=== PATIENT | female | born 1995 | race Two or more races ===

== ENCOUNTER 2021-11-30 12:02 | Inpatient (IN) | payer MEDICAID, OTHER ==
[~2021-11-30] VITALS: Ht 152.4 cm; Wt 97.4 kg
[2021-11-30 13:35] LABS: Basophils # (auto) 0 10 ^3/uL (0-0.2); Basophils % (auto) 0.4 % (0.0-2.0); Eosinophils # (auto) 0.1 10 ^3/uL (0-0.8); Eosinophils % (auto) 1.1 % (0.0-7.0); Hematocrit 34.1 % (36.0-46.0); Hemoglobin 11.6 g/dL (12.2-16.2); Lymphocytes # (auto) 1.8 10 ^3/uL (0.4-5.4); Lymphocytes % (auto) 22.5 % (10.0-50.0); Mean Corpuscular Hemoglobin 29.8 pg (28.0-32.0); Mean Corpuscular Hgb Conc. 33.9 g/dL (32.0-36.0); Mean Corpuscular Volume 87.8 fL (80.0-100.0); Monocytes # (auto) 0.5 10 ^3/uL (0-1.3); Monocytes % (auto) 6.9 % (0.0-12.0); Neutrophils # (auto) 5.5 10 ^3/uL (1.6-8.6); Neutrophils % (auto) 69.1 % (37.0-80.0); Red Blood Cells 3.88 10^6/uL (4.0-5.20); White Blood Cell 7.9 10^3/uL (4.4-10.8)
[2021-11-30 13:50] LABS: Albumin 3.7 g/dL (3.4-5.0); Calcium 8.6 mg/dL (8.5-10.1); Potassium 3.7 mmol/L (3.5-5.1)
[2021-11-30 13:54] LABS: BUN/Creatinine Ratio 14.3; Bilirubin, Total 0.8 mg/dL (0.2-1.0); Total Protein 6.9 g/dL (6.4-8.2)
[2021-11-30 15:15] LABS: Urine Bacteria NONE SEEN /hpf (None Seen); Urine Blood 3+ /uL (Negative); Urine Mucus FEW (None Seen); Urine Specific Gravity 1.023 (1.001-1.035); Urine WBC 153 /hpf (0 - 5)
[2021-11-30] MEDS ORDERED: SODIUM CHLORIDE 0.9% 500 ML IVB ONE (19:00)
[2021-11-30] MEDS ORDERED: SODIUM CHLORIDE 0.9% 1,000 ML IV ONE (19:00)
[2021-11-30 19:57] LABS: Magnesium 1.7 mg/dL (1.6-2.6)
[2021-11-30] MEDS ORDERED: fentaNYL CITRATE 5 ML ONE (20:02)
[2021-11-30] MEDS ORDERED: MIDAZOLAM HCL 2MG/2ML 2ml VIAL (1mg/ml) ONE (20:02)
[2021-11-30] MEDS ORDERED: ROCURONIUM 10MG/ML 10ML VIAL IV ONE (20:02)
[2021-11-30] MEDS ORDERED: ceFAZolin 1GM/50ML 50 ML IV ONE ×3 (20:06→20:30)
[2021-11-30] MEDS ORDERED: SUCCINYLCHOLINE CHLORIDE 20 MG/ML 10ML VIAL IV ONE (20:07)
[2021-11-30] MEDS ORDERED: ONDANSETRON HCL 4 MG/2 ML VIAL ONE (20:11)
[2021-11-30] MEDS ORDERED: PROPOFOL 10 MG/ML 20 ML IV ONE (20:11)
[2021-11-30] MEDS ORDERED: LIDOCAINE 2% (LOCAL ANESTH.) PF 5ml SDV ONE (20:11)
[2021-11-30 20:12] LABS: INR 0.96 (0.9-1.15); Partial Thromboplastin Time 24.8 sec (24.6-33.4)
[2021-11-30] MEDS ORDERED: ACETAMINOPHEN IV 100 ML IV ONE (20:30)
[2021-11-30] MEDS ORDERED: MORPHINE SULFATE 4 MG/ML SYR/VIAL IV PRN (20:30)
[2021-11-30] MEDS ORDERED: NITROGLYCERIN 0.4 MG SL TAB SL PRN ×2 (20:30)
[2021-11-30] MEDS ORDERED: ONDANSETRON HCL 4 MG/2 ML VIAL IV PRN ×2 (20:30→20:45)
[2021-11-30] MEDS ORDERED: MORPHINE SULFATE INJ 2 MG/ml SYRG IV PRN ×2 (20:30)
[2021-11-30] MEDS ORDERED: HYDROmorphone HCL 2 MG/ML VL/or syr IV PRN (20:45)
[2021-11-30] MEDS ORDERED: GLYCOPYRROLATE 0.2 MG/ML 1ML VIAL ONE (21:12)
[2021-11-30] MEDS ORDERED: NEOSTIGMINE 1 MG/ML INJ (10mg/10ML VIAL) ONE (21:12)
[2021-11-30] MEDS: HYDROmorphone HCL 2 MG/ML VL/or syr IV PRN ×2 (21:25→21:45)
[2021-11-30] MEDS ORDERED: MEPERIDINE HCL (25 MG/ML) 1ML VIAL IV ONE (21:30)
[2021-11-30] MEDS ORDERED: MEPERIDINE HCL (25 MG/ML) 1ML VIAL ONE (21:30)
[2021-12-01 00:29] VITALS: BP 98/65
[2021-12-01 05:00] VITALS: BP 99/61
[2021-12-01 05:30] LABS: Basophils # (auto) 0 10 ^3/uL (0-0.2); Basophils % (auto) 0.3 % (0.0-2.0); Eosinophils # (auto) 0 10 ^3/uL (0-0.8); Eosinophils % (auto) 0.4 % (0.0-7.0); Hematocrit 27.2 % (36.0-46.0); Hemoglobin 9.5 g/dL (12.2-16.2); Lymphocytes # (auto) 1.3 10 ^3/uL (0.4-5.4); Lymphocytes % (auto) 16.7 % (10.0-50.0); Mean Corpuscular Hemoglobin 30.9 pg (28.0-32.0); Mean Corpuscular Hgb Conc. 34.8 g/dL (32.0-36.0); Mean Corpuscular Volume 88.8 fL (80.0-100.0); Monocytes # (auto) 0.5 10 ^3/uL (0-1.3); Monocytes % (auto) 6.2 % (0.0-12.0); Neutrophils # (auto) 5.8 10 ^3/uL (1.6-8.6); Neutrophils % (auto) 76.4 % (37.0-80.0); Red Blood Cells 3.07 10^6/uL (4.0-5.20); Red Cell Distribution Width 13.1 % (11.8-14.3); White Blood Cell 7.6 10^3/uL (4.4-10.8)
[2021-12-01] MEDS ORDERED: IBUP800T27 PO (07:17)
[2021-12-01] MEDS ORDERED: CEPH500T PO (07:17)
[2021-12-01] MEDS ORDERED: ONDA-144 PO (07:17)
[2021-12-01] MEDS ORDERED: HYDR-4902 PO (07:17)
[2021-12-01] MEDS: SODIUM CHLORIDE 0.9% 1,000 ML IV SCH ×2 (07:36→12:30)
[2021-12-01 09:00] VITALS: BP 97/63
== END 2021-12-01 15:24 | disposition home or self-care (01) | DRG 547 ==
LOC: ER 12:02 → SUR 20:10 → EAST 21:22
PROVIDERS: ADMIT Obstetrics & Gynecology; ATTEND Obstetrics & Gynecology
PROC: 10T24ZZ Resection of Products of Conception, Ectopic, Percutaneous Endoscopic Approach (ICD-10-PCS; principal; 2021-11-30 19:57)
DX: O00.101 Right tubal pregnancy without intrauterine pregnancy (principal); K66.1 Hemoperitoneum; O08.89 Other complications following an ectopic and molar pregnancy; O08.83 Urinary tract infection following an ectopic and molar pregnancy; G40.909 Epilepsy, unspecified, not intractable, without status epilepticus; Z90.49 Acquired absence of other specified parts of digestive tract; Z20.822 Contact with and (suspected) exposure to COVID-19
CPT/HCPCS: 36415; 76801; 76817; 80053; 81001; 81025; 83690; 83735; 84702; 85025; 85610; 85730; 86850; 86900; 86901; 96360; G0378; J0330; J0690; J2001; J2250; J2405; J2704

== ENCOUNTER 2022-01-15 23:32 | Emergency (ER) | payer MEDICAID ==
[~2022-01-15] VITALS: Ht 162.6 cm; Wt 91.0 kg
[~2022-01-15 23:32] MED LIST: CEPH500T PO; HYDR-4902 PO; IBUP800T27 PO; ONDA-144 PO
[2022-01-16] MEDS ORDERED: PENICILLIN G BENZ 1200000 UNITS/2 ML SYRG IM ONE (02:15)
[2022-01-16] MEDS ORDERED: IBUP600T27 PO (02:37)
[2022-01-16 02:58] VITALS: BP 123/82
== END 2022-01-16 03:00 | disposition home or self-care (01) ==
LOC: ER 23:32
DX: J02.0 Streptococcal pharyngitis (principal); Z90.49 Acquired absence of other specified parts of digestive tract; Z79.1 Long term (current) use of non-steroidal anti-inflammatories (NSAID); Z79.899 Other long term (current) drug therapy; Z88.8 Allergy status to other drugs, medicaments and biological substances
CPT/HCPCS: 87070; 87804; 87880; 96372; 99283; J0561

== ENCOUNTER 2022-11-29 20:10 | Emergency (ER) | payer MEDICAID ==
[~2022-11-29] VITALS: Ht 162.6 cm; Wt 84.0 kg
[~2022-11-29 20:10] MED LIST changes: +IBUP-1454 PO; +IBUP-1456 PO; -IBUP800T27 PO
[2022-11-29] MEDS ORDERED: ONDANSETRON ODT 4 MG TAB PO ONE (20:45)
[2022-11-29] MEDS ORDERED: HYDROcodone-ACET 10/325MG TAB PO ONE (20:45)
[2022-11-29 21:10] VITALS: BP 118/66; PULSE 71; RESP 18; TEMP 97.8; O2SAT 97
[2022-11-29 21:23] LABS: Lipase 48 U/L (12-53)
[2022-11-29 21:28] LABS: Urine Bacteria NONE SEEN /hpf (None Seen); Urine Blood 1+ /uL (Negative); Urine Clarity Clear (Clear); Urine Color Yellow (Yellow); Urine Protein, UAD TRACE (Negative); Urine WBC 1 /hpf (0 - 5)
[2022-11-29 21:32] LABS: Basophils # (auto) 0 10 ^3/uL (0-0.2); Basophils % (auto) 0.3 % (0.0-2.0); Eosinophils # (auto) 0.2 10 ^3/uL (0-0.8); Eosinophils % (auto) 2.8 % (0.0-7.0); Hemoglobin 14.3 g/dL (12.2-16.2); Lymphocytes # (auto) 2.6 10 ^3/uL (0.4-5.4); Lymphocytes % (auto) 36.3 % (10.0-50.0); Mean Corpuscular Hemoglobin 30.6 pg (28.0-32.0); Mean Corpuscular Hgb Conc. 34.1 g/dL (32.0-36.0); Mean Corpuscular Volume 89.9 fL (80.0-100.0); Monocytes # (auto) 0.5 10 ^3/uL (0-1.3); Monocytes % (auto) 6.6 % (0.0-12.0); Neutrophils # (auto) 3.9 10 ^3/uL (1.6-8.6); Nucleated Red Blood Cells % 0.1 %; Red Blood Cells 4.67 10^6/uL (4.0-5.20); Red Cell Distribution Width 13.1 % (11.8-14.3); White Blood Cell 7.2 10^3/uL (4.4-10.8)
[2022-11-29 21:41] LABS: CRP High Sensitivity 0.27 mg/dL (<1.0)
[2022-11-29 21:49] LABS: Alanine Aminotransferase 62 U/L (7-40); Albumin 4.4 g/dL (3.2-4.8); Alkaline Phosphatase 71 U/L (46-116); Anion Gap 7 (5-15); Aspartate Aminotransferase 37 U/L (13-40); BUN/Creatinine Ratio 15.6 (10.0-20.0); Bilirubin, Total 0.5 mg/dL (0.2-1.0); Blood Urea Nitrogen 12 mg/dL (9-23); Calcium 9.1 mg/dL (8.5-10.1); Carbon Dioxide 27 mmol/L (20-30); Chloride 107 mmol/L (98-107); Glucose 109 mg/dL (74-106); Potassium 3.8 mmol/L (3.5-5.1); Sodium 141 mmol/L (136-145); Total Protein 6.9 g/dL (5.7-8.2)
[2022-11-30] MEDS ORDERED: KETOROLAC TROMETH 60MG/2ML VIAL IM ONE
[2022-11-30] MEDS ORDERED: TRAM50TA2 PO (00:05)
[2022-11-30] MEDS ORDERED: ZOFR4T PO (00:05)
== END 2022-11-30 00:52 | disposition home or self-care (01) ==
LOC: ER 20:10
DX: K76.0 Fatty (change of) liver, not elsewhere classified (principal); R10.2 Pelvic and perineal pain; N20.0 Calculus of kidney; Z90.49 Acquired absence of other specified parts of digestive tract; Z98.890 Other specified postprocedural states; Z88.8 Allergy status to other drugs, medicaments and biological substances; Z79.1 Long term (current) use of non-steroidal anti-inflammatories (NSAID); Z79.899 Other long term (current) drug therapy
CPT/HCPCS: 36415; 74176; 80053; 81001; 81025; 83690; 84702; 85025; 86141; 99284; Q0162

== ENCOUNTER → 2024-01-03 | Outpatient (CLI) | payer MEDICAID ==
[~2024-01-03] MED LIST changes: +TRAM50TA2 PO; +ZOFR4T PO
[2024-01-03 12:43] LABS: Basophils # (auto) 0 10 ^3/uL (0-0.2); Basophils % (auto) 0.6 % (0.0-2.0); Eosinophils # (auto) 0.1 10 ^3/uL (0-0.8); Eosinophils % (auto) 2.2 % (0.0-7.0); Hematocrit 40.9 % (36.0-46.0); Hemoglobin 14.1 g/dL (12.2-16.2); Lymphocytes # (auto) 2.1 10 ^3/uL (0.4-5.4); Lymphocytes % (auto) 32.7 % (10.0-50.0); Mean Corpuscular Hgb Conc. 34.4 g/dL (32.0-36.0); Monocytes # (auto) 0.4 10 ^3/uL (0-1.3); Monocytes % (auto) 6.1 % (0.0-12.0); Neutrophils # (auto) 3.8 10 ^3/uL (1.6-8.6); Neutrophils % (auto) 58.4 % (37.0-80.0); Nucleated Red Blood Cells % 0.1 %; Platelet Count (auto) 335 10^3/uL (140-450); Red Blood Cells 4.54 10^6/uL (4.0-5.20); Red Cell Distribution Width 12.8 % (11.8-14.3); White Blood Cell 6.5 10^3/uL (4.4-10.8)
[2024-01-03 13:00] LABS: Urine Bacteria FEW /hpf (None Seen); Urine Blood Negative /uL (Negative); Urine Clarity Clear (Clear); Urine Color Yellow (Yellow); Urine Mucus FEW (None Seen); Urine Protein, UAD TRACE (Negative); Urine Specific Gravity 1.023 (1.001-1.035); Urine Urobilinogen 2 mg/dL (Negative); Urine WBC 3 /hpf (0 - 5); Urine pH 6.5 (5.0-9.0)
[2024-01-03 13:35] LABS: Amphetamine Screen, Urine Neg (NEGATIVE)
[2024-01-03 13:36] LABS: Barbiturate Scree,Urine Neg (NEGATIVE); Benzodiazephine Screen, Urine Neg (NEGATIVE); Cannabinoid Screen, Urine Neg (NEGATIVE); Cocaine Screen, Urine Neg (NEGATIVE); Opiate Scree,Urine Neg (NEGATIVE); Phencyclidine Screen, Urine Neg (NEGATIVE)
[2024-01-03 13:37] LABS: Alanine Aminotransferase 36 U/L (7-40); Albumin 4.5 g/dL (3.2-4.8); Alkaline Phosphatase 53 U/L (46-116); Anion Gap 6 (5-15); Aspartate Aminotransferase 22 U/L (13-40); Calcium 9.7 mg/dL (8.7-10.4); Carbon Dioxide 28 mmol/L (20-31); Chloride 105 mmol/L (98-107); Glucose 85 mg/dL (74-106); LDL Cholesterol 76 mg/dL (< 100); Potassium 3.4 mmol/L (3.5-5.1); Sodium 139 mmol/L (136-145); Triglycerides 135 mg/dL (< 150)
[2024-01-03 13:38] LABS: Bilirubin, Total 0.6 mg/dL (0.2-1.0); Cholesterol 131 mg/dL (< 200); HDL Cholesterol 38 mg/dL (40-59); Total Protein 7.4 g/dL (5.7-8.2)
[2024-01-03 13:39] LABS: Thyroid Stimulating Hormone 0.38 uIU/mL (0.55-4.78)
[2024-01-03 13:41] LABS: BUN/Creatinine Ratio 8.5 (10.0-20.0); Blood Urea Nitrogen < 5 mg/dL (9-23)
[2024-01-03 13:57] LABS: Beta HCG, Quantitative 25911.9 mIU/mL (1.5-4.2)
[2024-01-04 07:06] LABS: RPR Non Reactive (Non Reactive)
[2024-01-04 10:06] LABS: Varicella Zoster IgG Antibody Reactive (Non Reactive)
[2024-01-04 21:06] LABS: Chlamydia Trachomatis, NAA Negative (Negative); Neisseria gonorrhoeae, NAA Negative (Negative)
== END | disposition home or self-care (01) ==
LOC: LAB 11:47
DX: Z11.3 Encounter for screening for infections with a predominantly sexual mode of transmission (principal); N39.0 Urinary tract infection, site not specified
CPT/HCPCS: 36415; 80053; 80061; 80307; 81001; 83036; 84439; 84443; 84702; 85025; 86592; 86703; 86762; 86787; 86850; 86900; 86901; 87086; 87340; 87902

== ENCOUNTER 2024-03-06 22:06 | Emergency (ER) | payer MEDICAID ==
[~2024-03-06] VITALS: Ht 162.6 cm; Wt 85.4 kg
[2024-03-06 22:53] LABS: Urine Bacteria None Seen /hpf (None Seen)
[2024-03-06 23:10] LABS: Urine Blood Negative /uL (Negative); Urine Clarity Clear (Clear); Urine Color Colorless (Yellow); Urine Protein, UAD Negative (Negative); Urine Specific Gravity 1.004 (1.001-1.035); Urine Squamous Epithelial Cell FEW /hpf (<5); Urine Urobilinogen Normal (Negative); Urine WBC 1 /hpf (0 - 5); Urine pH 6.5 (5.0-9.0)
[2024-03-06 23:45] LABS: Basophils # (auto) 0 10 ^3/uL (0-0.2); Basophils % (auto) 0.4 % (0.0-2.0); Eosinophils # (auto) 0.2 10 ^3/uL (0-0.8); Eosinophils % (auto) 1.9 % (0.0-7.0); Hematocrit 40.2 % (36.0-46.0); Hemoglobin 13.5 g/dL (12.2-16.2); Lymphocytes # (auto) 2.3 10 ^3/uL (0.4-5.4); Lymphocytes % (auto) 26.2 % (10.0-50.0); Mean Corpuscular Hemoglobin 30.4 pg (28.0-32.0); Mean Corpuscular Hgb Conc. 33.6 g/dL (32.0-36.0); Mean Corpuscular Volume 90.5 fL (80.0-100.0); Monocytes # (auto) 0.5 10 ^3/uL (0-1.3); Neutrophils # (auto) 5.6 10 ^3/uL (1.6-8.6); Neutrophils % (auto) 65.5 % (37.0-80.0); Platelet Count (auto) 371 10^3/uL (140-450); Red Blood Cells 4.44 10^6/uL (4.0-5.20); White Blood Cell 8.6 10^3/uL (4.4-10.8)
[2024-03-06 23:54] LABS: Anion Gap 6 (5-15); Calcium 9.7 mg/dL (8.7-10.4); Carbon Dioxide 27 mmol/L (20-31); Chloride 106 mmol/L (98-107); Glucose 105 mg/dL (74-106); Potassium 3.5 mmol/L (3.5-5.1); Sodium 139 mmol/L (136-145)
[2024-03-06 23:55] LABS: Albumin 4.3 g/dL (3.2-4.8); Total Protein 6.8 g/dL (5.7-8.2)
[2024-03-07] LABS: Alanine Aminotransferase < 9 U/L (7-40); Alkaline Phosphatase 45 U/L (46-116); Aspartate Aminotransferase 9 U/L (13-40); BUN/Creatinine Ratio 9.6 (10.0-20.0); Bilirubin, Total 0.2 mg/dL (0.2-1.0); Blood Urea Nitrogen < 5 mg/dL (9-23)
--- NOTE | 2024-03-07 00:12 | ED.PDOC ---
History of Present Illness HPI Comments 28 y/o F, with a Hx of ectopic pregnancies and spontaneous abortions, presents with c/o abnormal vaginal bleeding, today. Patient reports unprovoked onset of spotting, earlier, today, after wiping, while using her bathroom's toilet. Patient endorses on being 15x weeks with her 12th ( AB10). She comments on having a "hematoma" with her previous and reports no additional relevant Hx, such as sexual activity or injuries. She denies having any abdominal pain, nausea, vomiting, urinary symptoms, or other associated symptoms or modifiers at this time. Chief Complaint: Vaginal Bleed Time Seen by MD: 23:30 Primary Care Provider: HARLAN Reviewed Notes: Nurses Notes, Medications, Allergies Allergies: Coded Allergies: Sumatriptan (Verified Allergy, Unknown, 11/30/21) Home Meds Active Scripts Ondansetron Odt 4MG Tab (ZOFRAN PO) 4 Mg Tb, 4 MG PO Q6HP PRN, #15 TAB ODT TAB-DISSOLVE IN MOUTH, THEN SWALLOW Prov:ANA CARSNO PAC 11/30/22 Tramadol Hcl (Tramadol Hcl) 50 Mg Tab, 50 MG PO Q6HP PRN, #15 TAB Prov:ANA CARSON PAC 11/30/22 Ibuprofen (Ibuprofen) 600 Mg Tab, 1 TAB PO TID for 5 Days, #15 TAB Prov:ANA CARSON PAC 01/16/22 Ondansetron (Zofran) 4 Mg Tab, 4 MG PO Q4HPRN PRN, #30 TAB Prov:CANDY WALTON DO 12/01/21 Ibuprofen (Ibuprofen) 800 Mg Tab, 800 MG PO TID PRN for 15 Days, #40 TAB Prov:CANDY WALTON DO 12/01/21 Hydrocodone-Acetaminophen (Hydrocodone Bitartrate/AC 5-325 mg) 1 Tab Tab, 1 TAB PO Q6HP PRN for 5 Days, #20 TAB Prov:CANDY WALTON DO 12/01/21 Cephalexin Monohydrate (Cephalexin) 500 Mg Tab, 1 TAB PO QID, #40 TAB Prov:CANDY WALTON DO 12/01/21 Information Source: Patient Mode of Arrival: Ambulatory Severity: Moderate Timing: Hours Duration: Since onset Prehospital treatment: None Past Medical History PAST MEDICAL HISTORY: Seizures Past Medical History (Other): obesity Surgical History: Cholecystectomy 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 , 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) 12 Para 2 AB 10 Family History Family History: Unknown Social History Smoker: Non-Smoker Alcohol: Denies ETOH Use Drugs: Denies Drug Use Lives In: Home Genitourinary: reports: abnormal vagina bleeding All Other Systems: Reviewed and Negative (negative unless otherwise stated above or in HPI) Physical Exam General Appearance: Mild Distress, Obese HEENT: Normal ENT Inspection, Pharynx Normal, TMs Normal Neck: Full Range of Motion, Non-Tender, Normal, Normal Inspection Respiratory: Chest Non-Tender, Lungs Clear, No Accessory Muscle Use, No Respiratory Distress, Normal Breath Sounds Cardiovascular: No Edema, No JVD, No Murmur, No Gallop, Normal Peripheral Pulses, Regular Rate/Rhythm Breast Exam: Deferred Gastrointestinal: No Organomegaly, Non Tender, No Pulsatile Mass, Normal Bowel Sounds, Soft, Other (Gravid uterus) Genitalia: Deferred Pelvic: Deferred Rectal: Deferred Extremities: No calf tenderness, Normal capillary refill, Normal inspection, Normal range of motion, Non-tender, No pedal edema Musculoskeletal : Apperance: Normal Neurologic: Alert, special education educational assistant II-XII nml as Tested, No Motor Deficits, Normal Affect, Normal Mood, No Sensory Deficits Cerebellar Function: Normal Reflexes: Normal Skin: Dry, Normal Color, Warm Lymphatic: No Adenopathy Was a procedure done? Was a procedure done?: No Differential Dx Considerations may include: threatened , threatened , menorrhagia, menorrhea, dysmenorrhea X-Ray, Labs, Meds, VS Vital Signs Date Time Temp Pulse Resp B/P (MAP) Pulse Ox O2 Delivery O2 Flow Rate FiO2 03/06/24 22:38 98.1 87 16 113/73 (86) 97 Lab Test 03/06/24 23:00 03/06/24 22:40 Range/Units White Blood Count 8.6 4.4-10.8 10^3/uL Red Blood Count 4.44 4.0-5.20 10^6/uL Hemoglobin 13.5 12.2-16.2 g/dL Hematocrit 40.2 36.0-46.0 % Mean Corpuscular Volume 90.5 80.0-100.0 fL Mean Corpuscular Hemoglobin 30.4 28.0-32.0 pg Mean Corpuscular Hemoglobin Concent 33.6 32.0-36.0 g/dL Red Cell Distribution Width 13.0 11.8-14.3 % Platelet Count 371 140-450 10^3/uL Mean Platelet Volume 7.2 6.9-10.8 fL Neutrophils (%) (Auto) 65.5 37.0-80.0 % Lymphocytes (%) (Auto) 26.2 10.0-50.0 % Monocytes (%) (Auto) 6.0 0.0-12.0 % Eosinophils (%) (Auto) 1.9 0.0-7.0 % Basophils (%) (Auto) 0.4 0.0-2.0 % Neutrophils # (Auto) 5.6 1.6-8.6 10 ^3/uL Lymphocytes # (Auto) 2.3 0.4-5.4 10 ^3/uL Monocytes # (Auto) 0.5 0-1.3 10 ^3/uL Eosinophils # (Auto) 0.2 0-0.8 10 ^3/uL Basophils # (Auto) 0 0-0.2 10 ^3/uL Nucleated Red Blood Cells 0.0 % Sodium Level 139 136-145 mmol/L Potassium Level 3.5 3.5-5.1 mmol/L Chloride Level 106 98-107 mmol/L Carbon Dioxide Level 27 20-31 mmol/L Anion Gap 6 5-15 Blood Urea Nitrogen < 5 L 9-23 mg/dL Creatinine 0.52 L 0.550-1.02 mg/dL Glomerular Filtration Rate Calc 128 >90 mL/min BUN/Creatinine Ratio 9.6 L 10.0-20.0 Serum Glucose 105 74-106 mg/dL Calcium Level 9.7 8.7-10.4 mg/dL Total Bilirubin 0.2 0.2-1.0 mg/dL Aspartate Amino Transferase (AST) 9 L 13-40 U/L Alanine Aminotransferase (ALT) < 9 7-40 U/L Alkaline Phosphatase 45 L 46-116 U/L Total Protein 6.8 5.7-8.2 g/dL Albumin 4.3 3.2-4.8 g/dL Beta HCG, Quantitative 42673.8 H 1.5-4.2 mIU/mL Urine Color Colorless Yellow Urine Clarity Clear Clear Urine pH 6.5 5.0-9.0 Urine Specific [place] 1.004 1.001-1.035 Urine Protein Negative Negative Urine Ketones Negative Negative Urine Blood Negative Negative /uL Urine Nitrite Negative Negative Urine Bilirubin Negative Negative Urine Urobilinogen Normal Negative mg/dL Urine Leukocyte Esterase Trace Negative /uL Urine RBC <1 0 - 4 /hpf Urine WBC 1 0 - 5 /hpf Urine Squamous Epithelial Cells Few <5 /hpf Urine Bacteria None seen None Seen /hpf Urine Glucose Normal Normal mg/dL [facility] [id number] [place] [address] Ph: [phone] DIAGNOSTIC IMAGING Diagnostic Imaging Report : [id number] Signed PATIENT: ADDIS ESTEVEZ ACCT: [id number] UNIT: [id number] : 1995 LOC: ER ROOM / BED: / AGE / SEX: 28 / F ADM STATUS: REG ER SERVICE 2332 ORDERING PHYSICIAN: KASSI LOPEZ MD PROCEDURE(s): OBUS - OB ULTRASOUND COMP GTR 14 WKS REASON: vaginal bleed ORDER NUMBER(s): [id number], ACCESSION NUMBER(s): [id number] LIMITED OB ULTRASOUND > 14 WKS: HISTORY: vaginal bleed TECHNIQUE: Multiple real-time grayscale images of the gravid uterus with duplex Doppler color flow and M-mode spectral analysis. FINDINGS: IUP single live fetus at 15 weeks 3 days based on composite averages of the BPD, head circumference, abdominal circumference and femur length presentation is transverse with head towards the right side. Placenta is anterior. Cervical length of 3.8 cm. The cervix appears closed. Estimated weight of 123 g. LAUREN is adequate. MVP 3.7 cm. heart rate of 159 beats per minute. Satellite Dish Installer notes good movement. IMPRESSION: IUP single live fetus at 15 weeks 3 days AUA corresponding to an SHANIQUA of August 25, 2024 ATED BY: TYLER MUNROE DO DICTATED DATE/TIME: 03/07/2443 SIGNED BY: TYLER MUNROE DO SIGNED DATE/TIME: 03/07/2443 CC: [place] [address]. Patient was placed on Macrobid for urinary tract infection. She can follow up with the OBGYN doctor in 1-2 days. Time of 1ST Reevaluation: 00:00 Reevaluation 1ST: Unchanged Patient Education/Counseling: Diagnosis, Treatment Family Education/Counseling: No Family Present Departure 1 Departure Time of Disposition: 01:14 Impression: Primary Impression: Intrauterine Additional Impression: UTI (urinary tract infection) Qualified Codes: N39.0 - Urinary tract infection, site not specified Disposition: HOME / SELF CARE / HOMELESS Condition: Stable Additional Instructions: Reassessed patient, vital signs stable. Denies any new symptoms. Patient is able to tolerate PO and ambulate/be mobile at their baseline without concern. Risks and benefits of all medications given or prescribed, if any, discussed. All lab work, imaging and diagnostic studies were reviewed by me. The patient was cou nseled extensively on my clinical impression, diagnosis, expected course of the disease, and plan, including their follow-up care. Will discharge patient. Patient instructed to follow up with Primary Care Physician/OBGYN within 24-48 hours. Strict return precautions given for further exacerbation of symptoms or for new symptoms. The patient was given the opportunity to ask questions and all questions were answered by myself and the nursing/tech staff. Patient is in agreement with the care plan. The patient verbally expressed understanding of the discharge instructions, including the reasons to return to the Emergency Department. e-Prescriptions Nitrofurantoin Monohydrate Mac (Macrobid) 100 Mg Cap 100 MG PO BID, #14 CAP Prov: KASSI LOPEZ MD 03/07/24 Discharged With: Self Critical Care Note Critical Care Time?: No Stability Stability form required: No Heart Score Heart Score: Heart Score Response (Comments) Value History N/A 0 EKG N/A 0 Age N/A 0 Risk Factors N/A 0 Troponin N/A 0 Total 0 I personally scribed for KASSI LOPEZ MD ([email or web address]) on 03/07/24 at 00:12. Electronically submitted by Johnson Scott ([email or web address]). KASSI LOPEZ MD Mar 07, 2024 00:12
--- NOTE | 2024-03-07 00:47 | DVH ---
LIMITED OB ULTRASOUND > 14 WKS: HISTORY: vaginal bleed TECHNIQUE: Multiple real-time grayscale images of the gravid uterus with duplex Doppler color flow an d M-mode spectral analysis. FINDINGS: IUP single live fetus at 15 weeks 3 days based on composite averages of the BPD, head circumference, abdominal circumference and femur length presentation is transverse with head towards the right side. Placenta is anterior. Cervical le ngth of 3.8 cm. The cervix appears closed. Estimated weight of 123 g. LAUREN is adequate. MVP 3.7 cm. heart rate of 159 beats per minute. Director Of Curriculum notes good movement. IMPRESSION: IUP single live fetus at 15 weeks 3 days AUA corresponding to an SHANIQUA of August 25, 2024
[2024-03-07] MEDS ORDERED: NITR-87 PO (01:25)
[2024-03-07 01:33] VITALS: BP 122/62; PULSE 77; RESP 18; O2SAT 100
== END 2024-03-07 01:34 | disposition home or self-care (01) ==
LOC: ER 22:06
DX: O41.1220 Chorioamnionitis, second trimester, not applicable or unspecified (principal); R10.2 Pelvic and perineal pain; N39.0 Urinary tract infection, site not specified; Z3A.15 15 weeks gestation of pregnancy
CPT/HCPCS: 36415; 76805; 80053; 81001; 84702; 85025

== ENCOUNTER → 2024-06-13 | Outpatient (CLI) | payer MEDICAID ==
[~2024-06-13] MED LIST changes: +NITR-87 PO
[2024-06-13 15:51] LABS: Creatinine, Urine 87.98 mg/dL (30.0-125.0)
== END | disposition home or self-care (01) ==
LOC: LAB 14:14
DX: Z34.80 Encounter for supervision of other normal pregnancy, unspecified trimester (principal); Z3A.00 Weeks of gestation of pregnancy not specified
CPT/HCPCS: 36415; 82043; 82570; 84550

== ENCOUNTER 2024-06-16 21:09 | Observation (INO) | payer MEDICAID ==
[~2024-06-16] VITALS: Ht 162.6 cm; Wt 88.9 kg
[2024-06-16 22:39] LABS: Urine Bacteria None Seen /hpf (None Seen)
[2024-06-16 22:45] LABS: Basophils # (auto) 0 10 ^3/uL (0-0.2); Basophils % (auto) 0.3 % (0.0-2.0); Eosinophils # (auto) 0.1 10 ^3/uL (0-0.8); Eosinophils % (auto) 1.6 % (0.0-7.0); Hemoglobin 12.2 g/dL (12.2-16.2); Lymphocytes # (auto) 1.8 10 ^3/uL (0.4-5.4); Lymphocytes % (auto) 22.5 % (10.0-50.0); Mean Corpuscular Hemoglobin 31.2 pg (28.0-32.0); Mean Corpuscular Hgb Conc. 34.9 g/dL (32.0-36.0); Mean Corpuscular Volume 89.4 fL (80.0-100.0); Monocytes # (auto) 0.5 10 ^3/uL (0-1.3); Monocytes % (auto) 6.7 % (0.0-12.0); Neutrophils # (auto) 5.4 10 ^3/uL (1.6-8.6); Neutrophils % (auto) 68.9 % (37.0-80.0); Platelet Count (auto) 328 10^3/uL (140-450); Red Blood Cells 3.92 10^6/uL (4.0-5.20); Red Cell Distribution Width 13.3 % (11.8-14.3); White Blood Cell 7.8 10^3/uL (4.4-10.8)
[2024-06-16 22:53] LABS: Urine Blood Negative /uL (Negative); Urine Clarity Clear (Clear); Urine Color Colorless (Yellow); Urine Protein, UAD Negative (Negative); Urine Specific Gravity 1.005 (1.001-1.035); Urine Squamous Epithelial Cell FEW /hpf (<5); Urine Urobilinogen Normal (Negative); Urine WBC < 1 /HPF (0-5)
[2024-06-16 22:59] LABS: Alanine Aminotransferase 10 U/L (7-40); Alkaline Phosphatase 60 U/L (46-116); Calcium 9.3 mg/dL (8.7-10.4)
[2024-06-16 23:00] LABS: Albumin 3.8 g/dL (3.2-4.8); Anion Gap 10 (5-15); Bilirubin, Total 0.3 mg/dL (0.2-1.0); Carbon Dioxide 23 mmol/L (20-31); Sodium 141 mmol/L (136-145); Total Protein 6.3 g/dL (5.7-8.2); Uric Acid 3.4 mg/dL (3.1-7.8)
[2024-06-16 23:03] LABS: Creatinine, Urine 19.16 mg/dL (30.0-125.0); Urine Protein/Creatinine Ratio 0.31
[2024-06-16 23:04] LABS: Protein, Urine < 6.0 mg/dL (1-14)
[2024-06-16 23:05] LABS: Aspartate Aminotransferase 13 U/L (13-40); BUN/Creatinine Ratio 12.2 (10.0-20.0); Blood Urea Nitrogen < 5 mg/dL (9-23); Chloride 108 mmol/L (98-107); Glucose 130 mg/dL (74-106); Potassium 3.3 mmol/L (3.5-5.1)
[2024-06-16 23:05] LABS: Amphetamine Screen, Urine Neg (NEGATIVE); Barbiturate Scree,Urine Neg (NEGATIVE); Benzodiazephine Screen, Urine Neg (NEGATIVE); Cannabinoid Screen, Urine Neg (NEGATIVE); Cocaine Screen, Urine Neg (NEGATIVE); Opiate Scree,Urine Neg (NEGATIVE); Phencyclidine Screen, Urine Neg (NEGATIVE)
[2024-06-16] MEDS: ACETAMINOPHEN 325 MG TAB PO ONE (23:45)
--- NOTE | 2024-06-17 08:01 | DVHDS2 ---
Physician Discharge Progress N Final Diagnosis: gilbertoalexander 29wks Operations or Procedures: Operations or Procedures nst,sono Condition on Discharge: Good Disposition: Home Discharge Instructions: Diet: Consistent carbohydrate Activity: Light activity Medications: na Follow Up Care: Specialist: fu in 1 day with [facility]ila alexander arnold with neuro Discharge Statement: "Patient was advised to return to the ER or call 911 if any headaches, dizziness, shortness of breath, chest pain, abdominal pain, bleeding, fevers, or worsening of medical condition. Patient was counseled about treatment plan, medications, possible side effects, patientverbalized understanding. All questions were answered to the best of my ability. This discharge took greater then 30 minutes in planning, reviewing documentation, counseling the patient, and discussing with other team members." Visit Coding OBGYN Date of Service: Jun 16, 2024 Billing Provider: CANDY WALTON DO MAGNET VALVE ASSEMBLER Common Visit Codes: 86423-FSOFJWM INP/OBS CARE (HIGH) MAGNET VALVE ASSEMBLER Procedure Codes: 55985-58- NON-STRESS TEST CANDY WALTON DO Jun 17, 2024 08:01
== END 2024-06-17 01:03 | disposition home or self-care (01) ==
LOC: LDRP 21:09
PROVIDERS: ADMIT Obstetrics & Gynecology; ATTEND Obstetrics & Gynecology
DX: O99.353 Diseases of the nervous system complicating pregnancy, third trimester (principal); G40.909 Epilepsy, unspecified, not intractable, without status epilepticus; O26.893 Other specified pregnancy related conditions, third trimester; R51.9 Headache, unspecified; R10.12 Left upper quadrant pain; Z3A.29 29 weeks gestation of pregnancy; Z79.899 Other long term (current) drug therapy; Z98.890 Other specified postprocedural states
CPT/HCPCS: 36415; 59025; 80053; 80307; 81001; 82570; 82948; 82962; 84156; 84550; 85025; 94760; G0378

== ENCOUNTER 2024-07-10 07:22 | Observation (INO) | payer MEDICAID ==
[~2024-07-10] VITALS: Ht 162.6 cm; Wt 86.2 kg
[2024-07-10] MEDS: ACETAMINOPHEN 325 MG TAB PO PRN (10:01)
[2024-07-10] MEDS: InsuLIN REG 1unit/0.01ml Soln (100units/ml) SC ONE (10:02)
--- NOTE | 2024-07-10 10:11 | DVH ---
BIOPHYSICAL PROFILE HISTORY: GDMA1 Comparison Study: None TECHNIQUE: Multiple real-time grayscale sonographic images through the gravid uterus of the fetus wit h duplex doppler color flow and M-mode spectral analysis FINDINGS: BIOPHYSICAL PROFILE: breathing score: 2 movement score: 2 tone score: 2 Quantitative LAUREN score: 2 (LAUREN: 15.4 cm.) Total score: 8/8 The cervix is not seen. Single live fetus in cephalic presentation. heart rate 152 beats per minute. Anterior placenta without previa or abruption Biophysical profile score 8/8 corresponding to an SHANIQUA of 08/27/24 IMPRESSION: Biophysical profile score: 8/8
[2024-07-10] MEDS ORDERED: PREN-96 PO (10:27)
--- NOTE | 2024-07-11 05:56 | DVHDS2 ---
Discharge Summary Date of Admission July 10, 2024 at 09:20 Date of Discharge: July 10, 2024 Admitting Diagnosis GDM A1 33 weeks Labs/Diagnostic Data: Laboratory Results Test 07/10/24 10:39 POC Glucose 118 mg/dl (70-106) Brief Hx & Hospital Course: Reassuring heart tones in fluid Condition at Discharge: Good Final Diagnosis/Problems List Reassuring heart tones Discharge Disposition: Home Discharge Instruct/Medications Diet: Consistent carbohydrate Activity: Light activity Discharge Statement: "Patient was advised to return to the ER or call 911 if any headaches, diz ziness, shortness of breath, chest pain, abdominal pain, bleeding, fevers, or worsening of medical condition. Patient was counseled about treatment plan, medications, possible side effects, patientverbalized understanding. All questions were answered to the best of my ability. This discharge took greater then 30 minutes in planning, reviewing documentation, counseling the patient, and discussing with other team members." ASSESSMENT ASSESSMENT Assessment Visit Coding OBGYN Date of Service: July 10, 2024 Billing Provider: LIONEL TROTTER DO BULB FARMWORKER Common Visit Codes: 78035-GJI/OBS SAME DATE (LOW), 34800-LIG/OBS SAME DATE (MOD), 09586-MOC/OBS SAME DATE (HIGH) BULB FARMWORKER Procedure Codes: 29198-37- NON-STRESS TEST LIONEL TROTTER DO July 11, 2024 05:56
== END 2024-07-10 10:59 | disposition home or self-care (01) ==
LOC: UNDOADMOB 09:00 → LDRP 09:00 → UNDODISOB 10:59
PROVIDERS: ADMIT Obstetrics & Gynecology; ATTEND Obstetrics & Gynecology
DX: O24.419 Gestational diabetes mellitus in pregnancy, unspecified control (principal); Z98.890 Other specified postprocedural states; Z79.899 Other long term (current) drug therapy; Z3A.33 33 weeks gestation of pregnancy
CPT/HCPCS: 59025; 76819; 81002; 82948; 82962; 94760; 96372; G0378; J1815

== ENCOUNTER 2024-07-14 06:08 | Observation (INO) | payer MEDICAID ==
[~2024-07-14 06:08] MED LIST changes: +PREN-96 PO
--- NOTE | 2024-07-14 14:27 | DVH ---
BIOPHYSICAL PROFILE HISTORY: GDMA1 TECHNIQUE: Multiple transabdominal real-time grayscale sonographic images through the gravid uterus of the fetus with duplex Doppler color flow and M-mode spectral analysis FINDINGS: BIOPHYSICAL PROFILE: breathing score: 2 movement score: 2 tone score: 2 Quantitative LAUREN score: 2 (LAUREN: 15.3 Cm.) Total score: 8 The cervix not well visualized. Single live fetus in cephalic presentation. heart rate 148 beats per minute. Grade 3 anterior placenta without previa or abruption IMPRESSION: Biophysical profile score: 8/8
--- NOTE | 2024-07-14 15:08 | DVHDS2 ---
Physician Discharge Progress N Final Diagnosis: gdm 34 wks Operations or Procedures: Operations or Procedures nst reactive reviewed ,sono Condition on Discharge: Good Disposition: Home Discharge Instructions: Diet: Regular, Consistent carbohydrate Activity: No Restrictions, As Tolerated Medications: na Follow Up Care: Specialist: 1w Discharge Statement: "Patient was advised to return to the ER or call 911 if any headaches, dizziness, shortness of breath, chest pain, abdominal pain, bleeding, fevers, or worsening of medical condition. Patient was counseled about treatment plan, medications, possible side effects, patientverbalized understanding. All questions were answered to the best of my ability. This discharge took greater then 30 minutes in planning, reviewing documentation, counseling the patient, and discussing with other team members." Visit Coding OBGYN Date of Service: July 14, 2024 Billing Provider: CANDY WALTON DO RESPIRATORY SERVICES MANAGER Common Visit Codes: 13565-PIBFWSN OBS CARE (HIGH) RESPIRATORY SERVICES MANAGER Procedure Codes: 20424-60- NON-STRESS TEST CANDY WALTON DO July 14, 2024 15:08
== END 2024-07-14 15:06 | disposition home or self-care (01) ==
LOC: LDRP 13:20
PROVIDERS: ADMIT Obstetrics & Gynecology; ATTEND Obstetrics & Gynecology
DX: O24.419 Gestational diabetes mellitus in pregnancy, unspecified control (principal); Z3A.34 34 weeks gestation of pregnancy; Z79.899 Other long term (current) drug therapy; Z98.890 Other specified postprocedural states
CPT/HCPCS: 59025; 76819; 81002; 82948; 82962; 94760; G0378

== ENCOUNTER 2024-07-18 06:19 | Observation (INO) | payer MEDICAID ==
--- NOTE | 2024-07-28 11:27 | DVH ---
BIOPHYSICAL PROFILE HISTORY: GDMA1/ Cholestasis Comparison Study: US BIOPHYSICAL PROFILE on DOS: 07/14/24, US BIOPHYSICAL PROFILE on DOS: 07/10/24 TECHNIQUE: Multiple real-time grayscale sonographic images through the gravid uterus of the fetus wi th duplex Doppler color flow and M-mode spectral analysis FINDINGS: BIOPHYSICAL PROFILE: breathing score: 8 movement score: 8 tone score: 8 Quantitative LAUREN score: 8 (LAUREN: 13.3 Cm.) Total score: 8 The cervix is not visualized Single live fetus in cephalic presentation. heart rate 139 beats per minute. Grade 2, anterior placenta without previa or abruption IMPRESSION: Biophysical profile score: 8
[2024-07-28 11:34] LABS: Basophils # (auto) 0 10 ^3/uL (0-0.2); Basophils % (auto) 0.2 % (0.0-2.0); Eosinophils # (auto) 0.1 10 ^3/uL (0-0.8); Eosinophils % (auto) 1.1 % (0.0-7.0); Hematocrit 37.8 % (36.0-46.0); Lymphocytes # (auto) 1.3 10 ^3/uL (0.4-5.4); Lymphocytes % (auto) 15.6 % (10.0-50.0); Mean Corpuscular Hemoglobin 30.6 pg (28.0-32.0); Mean Corpuscular Hgb Conc. 34.4 g/dL (32.0-36.0); Mean Corpuscular Volume 89.1 fL (80.0-100.0); Monocytes # (auto) 0.4 10 ^3/uL (0-1.3); Monocytes % (auto) 5.1 % (0.0-12.0); Neutrophils # (auto) 6.4 10 ^3/uL (1.6-8.6); Nucleated Red Blood Cells % 0.1 %; Platelet Count (auto) 311 10^3/uL (140-450); Red Blood Cells 4.24 10^6/uL (4.0-5.20); Red Cell Distribution Width 13.6 % (11.8-14.3); White Blood Cell 8.2 10^3/uL (4.4-10.8)
[2024-07-28 11:50] LABS: Albumin 3.9 g/dL (3.2-4.8); Alkaline Phosphatase 113 U/L (46-116); Anion Gap 7 (5-15); Aspartate Aminotransferase 17 U/L (13-40); Bilirubin, Total 0.4 mg/dL (0.2-1.0); Calcium 9.4 mg/dL (8.7-10.4); Carbon Dioxide 23 mmol/L (20-31); Glucose 86 mg/dL (74-106); Potassium 3.9 mmol/L (3.5-5.1); Sodium 140 mmol/L (136-145); Total Protein 6.4 g/dL (5.7-8.2)
[2024-07-28 11:53] LABS: Alanine Aminotransferase < 9 U/L (7-40); BUN/Creatinine Ratio 11.1 (10.0-20.0); Blood Urea Nitrogen < 5 mg/dL (9-23); Chloride 110 mmol/L (98-107)
--- NOTE | 2024-07-28 17:00 | DVHDS2 ---
Physician Discharge Progress N Final Diagnosis: gdm,cholestasis 35wks Operations or Procedures: Operations or Procedures nst reactive reviewed Condition on Discharge: Good Disposition: Home Discharge Instructions: Diet: Consistent carbohydrate Activity: Light activity Medications: actigal Follow Up Care: Specialist: 3d Discharge Statement: "Patient was advised to return to the ER or call 911 if any headaches, dizziness, shortness of breath, chest pain, abdominal pain, bleeding, fevers, or worsening of medical condition. Patient was counseled about treatment plan, medications, possible side effects, patientverbalized understanding. All questions were answered to the best of my ability. This discharge took greater then 30 minutes in planning, reviewing documentation, counseling the patient, and discussing with other team members." Visit Coding OBGYN Date of Service: July 28, 2024 Billing Provider: CANDY WALTON DO PHOTO TECHNICIAN Common Visit Codes: 08682-MOGUFUW OBS CARE (HIGH) PHOTO TECHNICIAN Procedure Codes: 04558-81- NON-STRESS TEST CANDY WALTON DO July 28, 2024 17:00
== END 2024-07-28 12:51 | disposition home or self-care (01) ==
LOC: UNDOADMOB 07-28 10:15 → LDRP 07-28 10:15 → UNDODISOB 07-28 12:51
PROVIDERS: ADMIT Obstetrics & Gynecology; ATTEND Obstetrics & Gynecology
DX: O24.419 Gestational diabetes mellitus in pregnancy, unspecified control (principal); O26.643 Intrahepatic cholestasis of pregnancy, third trimester; K83.1 Obstruction of bile duct; Z3A.34 34 weeks gestation of pregnancy; Z79.899 Other long term (current) drug therapy
CPT/HCPCS: 36415; 59025; 76819; 80053; 81002; 82948; 82962; 83036; 85025; 86780; 94760; G0378

== ENCOUNTER 2024-08-01 07:19 | Observation (INO) | payer MEDICAID ==
--- NOTE | 2024-08-04 08:43 | DVH ---
BIOPHYSICAL PROFILE HISTORY: GDMA1/Mis TECHNIQUE: Multiple transabdominal real-time grayscale sonographic images through the gravid uterus o f the fetus with duplex doppler color flow and M-mode spectral analysis FINDINGS: BIOPHYSICAL PROFILE: breathing score: 2 movement score: 2 tone score: 2 Quantitative LAUREN score: 2 (LAUREN: 12.6 cm.) Total score: 8/8 Single live fetus in cephalic presentation. heart rate 147 beats per minute. Grade 2 anterior placenta without previa or abruption Biophysical profile score 8/8 corresponding to an SHANIQUA of 08/27/24 IMPRESSION: Biophysical profile score: 8/8
[2024-08-04] MEDS ORDERED: URSO300C2 PO (09:28)
--- NOTE | 2024-08-04 09:56 | DVHDS2 ---
Physician Discharge Progress N Final Diagnosis: cholestasis 36wks Operations or Procedures: Operations or Procedures nst reactive reviewed,sono Other Interventions Other Interventions pt has been noncompliant and has not picked up her meds actigal ,risks and complic of iufd d/w pt .pt urged to sampler pickup med and will induce tmw bc of noncompliancey Condition on Discharge: Good Disposition: Home Discharge Instructions: Diet: Consistent carbohydrate Activity: No Restrictions, As Tolerated Medications: actigal Follow Up Care: Specialist: 1d Discharge Statement: "Patient was advised to return to the ER or call 911 if any headaches, dizziness, shortness of breath, chest pain, abdominal pain, bleeding, fevers, or worsening of medical condition. Patient was counseled about treatment plan, medications, possible side effects, patientverbalized understanding. All questions were answered to the best of my ability. This discharge took greater then 30 minutes in planning, reviewing documentation, counseling the patient, and discussing with other team members." Visit Coding OBGYN Date of Service: Aug 04, 2024 Billing Provider: CANDY WALTON DO BEAD PICKER Common Visit Codes: 28615-PXYOYGA OBS CARE (HIGH) BEAD PICKER Procedure Codes: 45334-96- NON-STRESS TEST CANDY WALTON DO Aug 04, 2024 09:56
== END 2024-08-04 09:44 | disposition home or self-care (01) ==
LOC: LDRP 08-04 08:02 → UNDOADMOB 08-04 08:02 → LDRP 08-04 08:07 → UNDODISOB 08-04 09:44
PROVIDERS: ADMIT Obstetrics & Gynecology; ATTEND Obstetrics & Gynecology
DX: O26.643 Intrahepatic cholestasis of pregnancy, third trimester (principal); K83.1 Obstruction of bile duct; Z3A.36 36 weeks gestation of pregnancy; Z79.899 Other long term (current) drug therapy; Z98.890 Other specified postprocedural states
CPT/HCPCS: 59025; 76819; 81002; 82948; 82962; 94760; G0378

== ENCOUNTER 2024-08-05 19:53 | Inpatient (IN) | payer MEDICAID ==
[~2024-08-05] VITALS: Ht 162.6 cm; Wt 90.3 kg
[~2024-08-05 19:53] MED LIST changes: +URSO300C2 PO
[2024-08-05] MEDS ORDERED: NALBUPHINE HCL 10 MG/1ml INJECTION IV PRN (20:15)
[2024-08-05] MEDS ORDERED: LIDOCAINE 2%HCL (LOCAL ANESTH.) INJ 20ML MDV IJ PRN (20:15)
[2024-08-05 20:53] LABS: Basophils # (auto) 0 10 ^3/uL (0-0.2); Basophils % (auto) 0.3 % (0.0-2.0); Eosinophils # (auto) 0.1 10 ^3/uL (0-0.8); Eosinophils % (auto) 1.3 % (0.0-7.0); Hematocrit 38.8 % (36.0-46.0); Hemoglobin 13.5 g/dL (12.2-16.2); Lymphocytes # (auto) 1.9 10 ^3/uL (0.4-5.4); Lymphocytes % (auto) 21.5 % (10.0-50.0); Mean Corpuscular Hemoglobin 30.9 pg (28.0-32.0); Mean Corpuscular Hgb Conc. 34.8 g/dL (32.0-36.0); Mean Corpuscular Volume 88.9 fL (80.0-100.0); Monocytes # (auto) 0.6 10 ^3/uL (0-1.3); Monocytes % (auto) 6.3 % (0.0-12.0); Neutrophils # (auto) 6.3 10 ^3/uL (1.6-8.6); Neutrophils % (auto) 70.6 % (37.0-80.0); Nucleated Red Blood Cells % 0.1 %; Platelet Count (auto) 323 10^3/uL (140-450); Red Blood Cells 4.36 10^6/uL (4.0-5.20); Red Cell Distribution Width 13.6 % (11.8-14.3); White Blood Cell 8.9 10^3/uL (4.4-10.8)
[2024-08-05 20:56] LABS: Urine Bacteria None Seen /hpf (None Seen); Urine Blood Negative /uL (Negative); Urine Clarity Clear (Clear); Urine Color Colorless (Yellow); Urine Protein, UAD Negative (Negative); Urine Specific Gravity 1.003 (1.001-1.035); Urine Squamous Epithelial Cell FEW /hpf (<5); Urine Urobilinogen Normal (Negative); Urine pH 6.5 (5.0-9.0)
[2024-08-05 21:09] LABS: Alanine Aminotransferase 11 U/L (7-40); Albumin 4.2 g/dL (3.2-4.8); Anion Gap 12 (5-15); Aspartate Aminotransferase 21 U/L (13-40); BUN/Creatinine Ratio 9.6 (10.0-20.0); Calcium 9.9 mg/dL (8.7-10.4); Carbon Dioxide 23 mmol/L (20-31); Chloride 106 mmol/L (98-107); Glucose 103 mg/dL (74-106); Potassium 3.8 mmol/L (3.5-5.1); Sodium 141 mmol/L (136-145); Total Protein 6.9 g/dL (5.7-8.2)
[2024-08-05 21:10] LABS: Bilirubin, Total 0.5 mg/dL (0.2-1.0)
[2024-08-05 21:12] LABS: INR 0.91 (0.9-1.15); Partial Thromboplastin Time 24.6 SEC (24.5-34.5); Prothrombin Time 9.7 sec (9.3-11.8)
[2024-08-05 21:45] LABS: Alkaline Phosphatase 131 U/L (46-116); Blood Urea Nitrogen 5 mg/dL (9-23)
[2024-08-05 21:45] LABS: Amphetamine Screen, Urine Neg (NEGATIVE); Barbiturate Scree,Urine Neg (NEGATIVE); Benzodiazephine Screen, Urine Neg (NEGATIVE); Cocaine Screen, Urine Neg (NEGATIVE); Opiate Scree,Urine Neg (NEGATIVE); Phencyclidine Screen, Urine Neg (NEGATIVE)
[2024-08-05 21:46] LABS: Cannabinoid Screen, Urine Neg (NEGATIVE)
[2024-08-05 21:50] LABS: Urine WBC < 1 /HPF (0-5)
[2024-08-05] MEDS ORDERED: URSODIOL 300 MG CAP PO SCH (22:00)
--- NOTE | 2024-08-05 22:03 | DVHHP2 ---
OB CC & HPI Date Date of Admission: Aug 05, 2024 Patient Identification: : 14 Para: 2 EDC: Aug 27, 2024 EGA: 36w 6d Chief Complaints: Reason for admission: induction of labor Indication for induction: medical complication (Epilepsy), other (Cholestasis of , GDMA1) Other reason for admission: IOL for Chlestasis of Admission Nurse Assessment Rev: Yes History of Present Complaints 28yo female with EDC on 08/27/24 by 6week US presents to Place for IOL. complicated by Cholestasis and GDMA2. Pt with h/o epilepsy well controlled on Keppra. Has not had a seizure in more than ten years. Reports normal movement, mild irregular contraction, no LOF, no vaginal bleeding Past Medical History Cardiac: No pertinent Hx Pulmonary: No pertinent Hx Central Nervous System: Migraine, Seizure GI: Inflam bowel disease Hemotology/Oncology: No pertinent Hx Hepatobiliary: No pertinent Hx Psychiatric: No pertinent Hx Musculoskeletal: No pertinent Hx Rheumotologic: No pertinent Hx Infectious Disease: No peritnent Hx ENT: No pertinent Hx Renal/: No pertinent Hx Endocrine: Other (GDM) Dermatology: No pertinent Hx Past Surgical History: Cholecystectomy, Laparotomy, Tonsillectomy OB History OB History Care: Good Care Ultrasounds: Normal mid trimester US Obstetrical Complications: Gestational Diabetes, Other (Cholestasis of ) Medical Complications: Neurological Allergies: Coded Allergies: Sumatriptan (Verified Adverse Reaction, Mild, 08/05/24) Throat felt tight but no problem breathing Home Meds Active Scripts Nitrofurantoin Monohydrate Mac (Macrobid) 100 Mg Cap, 100 MG PO BID, #14 CAP Prov:KASSI LOPEZ MD 03/07/24 Ondansetron Odt 4MG Tab (ZOFRAN PO) 4 Mg Tb, 4 MG PO Q6HP PRN, #15 TAB ODT TAB-DISSOLVE IN MOUTH, THEN SWALLOW Prov:ANA CARSON PAC 11/30/22 Tramadol Hcl (Tramadol Hcl) 50 Mg Tab, 50 MG PO Q6HP PRN, #15 TAB Prov:ANA CARSON PAC 11/30/22 Ibuprofen (Ibuprofen) 600 Mg Tab, 1 TAB PO TID for 5 Days, #15 TAB Prov:ANA CARSON PAC 01/16/22 Ondansetron (Zofran) 4 Mg Tab, 4 MG PO Q4HPRN PRN, #30 TAB Prov:CANDY WALTON DO 12/01/21 Ibuprofen (Ibuprofen) 800 Mg Tab, 800 MG PO TID PRN for 15 Days, #40 TAB Prov:CANDY WALTNO DO 12/01/21 Hydrocodone-Acetaminophen (Hydrocodone Bitartrate/AC 5-325 mg) 1 Tab Tab, 1 TAB PO Q6HP PRN for 5 Days, #20 TAB Prov:CANDY WALTON DO 12/01/21 Cephalexin Monohydrate (Cephalexin) 500 Mg Tab, 1 TAB PO QID, #40 TAB Prov:CANDY WALTON DO 12/01/21 Reported Medications Ursodiol (Ursodiol) 300 Mg Cap, 300 MG PO, CAP 08/04/24 Vit W/ Ferrous Fumara ( One Daily) Daily Tab, 1 TAB PO DAILY, #90 TAB 3 Refills 07/10/24 Current Medications Current Medications Medications (Trade) Dose Ordered Sig/Juvenal Route PRN Reason Start Time Stop Time Status Last Admin Lactated Ringer's 1,000 ml @ 125 mls/hr Q8H IV 08/05/24 20:15 Nalbuphine HCl (Nubain) 10 mg Q4HP PRN IV MODERATE PAIN (4-6 PAIN SCALE) 08/05/24 20:15 Penicillin G Potassium [id number] units/Dextrose 50 ml @ 100 mls/hr Q4H IV 08/06/24 00:15 Monica She (Tucks) 1 pad PRN PRN TOP PERINEAL AREA DISCOMFORT 08/05/24 20:15 Sodium Lauryl Sulfate (Phisoderm) 240 ml PRN PRN TOP PERINEAL AREA DISCOMFORT 08/05/24 20:15 Benzocaine (Dermoplast) 1 applic PRN PRN TOP PERINEAL AREA DISCOMFORT 08/05/24 20:15 Misoprostol (Cytotec) 50 mcg Q4HPRN PRN PO CERVICAL RIPENING 08/05/24 20:15 Lidocaine HCl (Xylocaine) 40 ml ONCE PRN IJ PERINEAL AREA DISCOMFORT 08/05/24 20:15 Ursodiol (Actigall) 300 mg BID PO 08/05/24 22:00 Levetiracetam (Keppra Tablet) 600 mg BID PO 08/06/24 07:00 UNV Family & Social History Family/Social History Past Family/Social History: Diabetes Mellitus - Mother Crohn's disease - father Blood Type: O+ Rubella: not immune RPR/VDRL: Negative GBS Status: Unknown HBsAG: Negative Review of Systems Constitutional: No symptom reported Ears, Nose, & Throat: No symptom reported Eyes: No symptom reported Pulmonary/Respiratory: No symptom reported Cardiovascular: No symptom reported Gastrointestinal: No symptom reported Genitourinary: No symptom reported Musculoskeletal: No symptom reported Skin: No symptom reported Psychiatric: No symptom reported Endocrine: No symptom reported Hemotologic/Lymphatic: No symptom reported OB Admission Exam Physical Exam HEENT: TMs Normal, Fontanelles Normal, Nasal Mucosa Normal, Eyes non-injected, Oropharynx Normal, PERRLA, Moist Membranes, EOMI Heart: Rhythm Normal Lungs: Clear Abdomen: Gravid (non-tender to palpation) Extremities: Normal Reflexes: Normal Cervical Dilatation: 3cm Effacement: 50% Station: -2 Membranes: Intact Heart Rate: 130's Accelerations: Accelerations Present Decelerations: No Decelerations Skilled Nursing Variability: Average (6-25) Contractions on Admission: < 5 Minutes Apart Date/Time Contractions Began: 08/05/24 Frequency of Contractions: 3min Duration: 50 Intensity: Mild OB Plan Plan Admitting Diagnosis: IUP at 36w 6d Cholestasis of GDMA1 Epilepsy Induction of Labor for Cholestasis of Induction Methd: Misoprostol protocol Other Plan: IOL process, cervical ripening with medication, cervical ripening balloon, oxytocin etc including the risks, benefits and options discussed with the patient Informed consent obtained. Risk of pain, bleeding, infection, discussed with the patient and partner Consent for possible blood transfusion obtained. All questions answered. Admit to Place for scheduled IOL Routine L&D admission orders Misoprostol per protocol EFM per policy & protocol Intrauterine resuscitation PRN GBS prophylaxis with Penicillin IVPB (To be started when in labor; at 4cm cervical dilation) Labor analgesia PRN Encourage frequent position change and ambulation to facilitate labor & descent Supportive Care Anticipate Visit Coding OBGYN Date of Service: Aug 05, 2024 Billing Provider: SANDRA NELSON CNM FORK REPAIRER Common Visit Codes: [id number] INP/OBS CARE (HIGH) FORK REPAIRER Procedure Codes: 95591-25- NON-STRESS TEST SANDRA NELSON [facility] Aug 05, 2024 22:03
[2024-08-05] MEDS: LACTATED RINGER'S 1,000 ML IV SCH (23:06)
[2024-08-05] MEDS: URSODIOL 300 MG CAP PO SCH (23:14)
[2024-08-05] MEDS: PHISODERM TOP SOLN 240ML BTL TOP PRN (23:15)
[2024-08-05] MEDS: WITCH HAZEL-GLYCERIN PAD TOP PRN (23:15)
[2024-08-05] MEDS: DERMOPLAST 60ML BOTTLE TOP PRN (23:15)
[2024-08-06] MEDS: miSOPROStol 50 MCG per PRE-CUT 1/2 TAB PO PRN
--- NOTE | 2024-08-06 05:19 | DVHPN2 ---
[facility] Labor Progress Note Date and Time Seen Date Seen: Aug 06, 2024 Time Seen: 05:05 Subjective Patient reports: No new complaints Objective Vital Signs VSS Monitoring Method Monitoring Method: External Heart Rate Heart Rate Baseline: 140 Heart Rate Variability: Moderate Presence of FHR Accelerations: Yes Presence of FHR Decelerations: No Changes in Trends of Patterns: No Are all 5 Components of the FH: Yes Contractions Contractions Frequency: Other (Q 2-5minutes) Duration of Contraction: 60 Contractions Intensity: Mild, Moderate Contractions Resting Tone: Relaxed Membranes Membranes: Intact Vaginal Exam Vag Exam Deferred: No Vaginal Exam Dilation: 4 Vaginal Exam Effacement: 60 Vaginal Exam Station: -2 Vaginal Exam Presentation: VTX Vaginal Exam Show: Moderate Medications Medications - Pitocin: No Medication - Epidural: No Lab Results Lab Results Vital Signs Date Time Temp Pulse Resp B/P (MAP) Pulse Ox O2 Delivery O2 Flow Rate FiO2 08/06/24 10:37 113/64 Current Medications Medications (Trade) Dose Ordered Sig/Juvenal Start Time Stop Time Status Last Admin Dose Admin Lactated Ringer's 1,000 ml @ 125 mls/hr Q8H 08/05/24 20:15 08/06/24 10:58 125 MLS/HR Nalbuphine HCl (Nubain) 10 mg Q4HP PRN 08/05/24 20:15 Penicillin G Potassium 50 ml @ 100 mls/hr ONCE ONCE 08/05/24 20:15 08/05/24 21:37 DC 08/06/24 07:28 100 MLS/HR Penicillin G Potassium [id number] units/Dextrose 50 ml @ 100 mls/hr Q4H 08/06/24 00:15 08/06/24 11:26 100 MLS/HR Witch She (Tucks) 1 pad PRN PRN 08/05/24 20:15 08/05/24 23:15 1 PAD Sodium Lauryl Sulfate (Phisoderm) 240 ml PRN PRN 08/05/24 20:15 08/05/24 23:15 240 ML Benzocaine (Dermoplast) 1 applic PRN PRN 08/05/24 20:15 08/05/24 23:15 1 APPLIC Misoprostol (Cytotec) 50 mcg Q4HPRN PRN 08/05/24 20:15 08/06/24 00:00 50 MCG Lidocaine HCl (Xylocaine) 40 ml ONCE PRN 08/05/24 20:15 Ursodiol (Actigall) 300 mg BID 08/05/24 22:00 08/05/24 22:59 DC Levetiracetam (Keppra Tablet) 600 mg BID@0700,1900 08/06/24 07:00 08/06/24 07:15 DC Ursodiol (Actigall) 300 mg TID 08/05/24 23:00 08/06/24 06:18 300 MG Oxytocin 1,000 ml @ 6 ml/hr Q24H 08/06/24 06:00 08/06/24 13:11 6 ML/HR Oxytocin 500 ml @ 999 mls/hr Q31M ONCE 08/06/24 06:00 08/06/24 06:30 DC Oxytocin 500 ml @ 125 mls/hr Q4H ONCE 08/06/24 06:30 08/06/24 10:29 DC Naloxone HCl (Narcan) 0.2 mg PRN ONCE 08/06/24 06:45 08/06/24 06:46 DC Ephedrine Sulfate (ePHEDrine SULFATE) 10 mg PRN ONCE 08/06/24 06:45 08/06/24 06:46 DC 08/06/24 11:18 10 MG Fentanyl Citrate 100 mcg ONCE ONCE 08/06/24 06:45 08/06/24 06:46 DC 08/06/24 10:37 100 MCG Lidocaine HCl (Xylocaine-Pf 2% Injection) 10 ml ONCE ONCE 08/06/24 06:45 08/06/24 06:46 DC 08/06/24 10:38 10 ML Lactated Ringer's 500 ml @ 500 mls/hr Q1H ONCE 08/06/24 06:45 08/06/24 07:44 DC Lidocaine/ Epinephrine (Xylocaine-Mpf/ Epinephrine 1.5 %-1:155629) 10 ml ONCE ONCE 08/06/24 06:45 08/06/24 06:46 DC Ondansetron HCl (Zofran) 4 mg Q4HPRN PRN 08/06/24 07:00 Levetiracetam (Keppra Tablet) 500 mg BID@0700,1900 08/06/24 07:15 08/06/24 07:29 500 MG Sodium Chloride 500 ml @ 500 mls/hr Q1H PRN 08/06/24 11:00 Naloxone HCl (Narcan) 0.2 mg PRN ONCE 08/06/24 11:00 08/06/24 11:01 DC Ephedrine Sulfate (ePHEDrine SULFATE) 10 mg PRN ONCE 08/06/24 11:00 08/06/24 11:01 DC Fentanyl Citrate 100 mcg ONCE ONCE 08/06/24 11:00 08/06/24 11:01 DC Fentanyl/ Ropivacaine 200 ml @ 10 mls/hr UD 08/06/24 11:00 08/08/24 10:59 Laboratory Tests Test 08/06/24 11:09 08/05/24 20:31 08/05/24 20:30 08/05/24 20:11 Range/Units POC Glucose 102 70-106 mg/dl White Blood Count 8.9 4.4-10.8 10^3/uL Red Blood Count 4.36 4.0-5.20 10^6/uL Hemoglobin 13.5 12.2-16.2 g/dL Hematocrit 38.8 36.0-46.0 % Mean Corpuscular Volume 88.9 80.0-100.0 fL Mean Corpuscular Hemoglobin 30.9 28.0-32.0 pg Mean Corpuscular Hemoglobin Concent 34.8 32.0-36.0 g/dL Red Cell Distribution Width 13.6 11.8-14.3 % Platelet Count 323 140-450 10^3/uL Mean Platelet Volume 8.2 6.9-10.8 fL Neutrophils (%) (Auto) 70.6 37.0-80.0 % Lymphocytes (%) (Auto) 21.5 10.0-50.0 % Monocytes (%) (Auto) 6.3 0.0-12.0 % Eosinophils (%) (Auto) 1.3 0.0-7.0 % Basophils (%) (Auto) 0.3 0.0-2.0 % Neutrophils # (Auto) 6.3 1.6-8.6 10 ^3/uL Lymphocytes # (Auto) 1.9 0.4-5.4 10 ^3/uL Monocytes # (Auto) 0.6 0-1.3 10 ^3/uL Eosinophils # (Auto) 0.1 0-0.8 10 ^3/uL Basophils # (Auto) 0 0-0.2 10 ^3/uL Nucleated Red Blood Cells 0.1 % Prothrombin Time 9.7 9.3-11.8 sec Prothrombin Time INR 0.91 0.9-1.15 Activated Partial Thromboplast Time 24.6 24.5-34.5 SEC Sodium Level 141 136-145 mmol/L Potassium Level 3.8 3.5-5.1 mmol/L Chloride Level 106 98-107 mmol/L Carbon Dioxide Level 23 20-31 mmol/L Anion Gap 12 5-15 Blood Urea Nitrogen 5 L 9-23 mg/dL Creatinine 0.52 L 0.550-1.02 mg/dL Glomerular Filtration Rate Calc 128 >90 mL/min BUN/Creatinine Ratio 9.6 L 10.0-20.0 Serum Glucose 103 74-106 mg/dL Calcium Level 9.9 8.7-10.4 mg/dL Total Bilirubin 0.5 0.2-1.0 mg/dL Aspartate Amino Transferase (AST) 21 13-40 U/L Alanine Aminotransferase (ALT) 11 7-40 U/L Alkaline Phosphatase 131 H 46-116 U/L Total Protein 6.9 5.7-8.2 g/dL Albumin 4.2 3.2-4.8 g/dL Treponema pallidum Antibody Non-reactive Negative Urine Color Colorless Yellow Urine Clarity Clear Clear Urine pH 6.5 5.0-9.0 Urine Specific Jbphh 1.003 1.001-1.035 Urine Protein Negative Negative Urine Ketones Negative Negative Urine Blood Negative Negative /uL Urine Nitrite Negative Negative Urine Bilirubin Negative Negative Urine Urobilinogen Normal Negative mg/dL Urine Leukocyte Esterase Negative Negative /uL Urine RBC None seen 0 - 4 /hpf Urine Microscopic WBC < 1 0-5 /HPF Urine Squamous Epithelial Cells Few <5 /hpf Urine Bacteria None seen None Seen /hpf Urine Glucose Normal Normal mg/dL Urine Opiates Screen Neg NEGATIVE Urine Fentanyl Screen Neg NEGATIVE Urine Barbiturates Screen Neg NEGATIVE Urine Phencyclidine Screen Neg NEGATIVE Urine Amphetamines Screen Neg NEGATIVE Urine Benzodiazepines Screen Neg NEGATIVE Urine Cocaine Screen Neg NEGATIVE Urine Cannabinoids Screen Neg NEGATIVE Assessment Assessment IUP at 37weeks Cholestasis of IOL for above GDMA2 Epilepsy Category I FHR Tracing h/o multiple Loss Plan Plan Pitocin Augmentation Continue EFM per protocol Encourage ambulation / frequent position change to facilitate labor Intrauterine resuscitation PRN Labor analgesia PRN Supportive Care Plan discussed with: Patient, Spouse Visit Coding OBGYN Date of Service: Aug 06, 2024 Billing Provider: SANDRA NELSON CNM RADIO RECORDER Common Visit Codes: [id number] INP/OBS CARE(HIGH) RADIO RECORDER Procedure Codes: 52159-46- NON-STRESS TEST SANDRA NELSON CNM Aug 06, 2024 05:19
[2024-08-06] MEDS ORDERED: LACTATED RINGER'S 500 ML IV ONE (06:45)
[2024-08-06] MEDS: NALOXONE HCL 0.4 MG/ML VIAL IV ONE ×2 (06:45→11:00)
[2024-08-06] MEDS: Lidocaine W-Epinephrine 1.5%-1:200,000 INJ 10ml Vial IJ ONE (06:45)
[2024-08-06] MEDS ORDERED: ONDANSETRON HCL 4 MG/2 ML VIAL IV PRN (07:00)
[2024-08-06] MEDS ORDERED: levETIRAcetam 500 MG TAB PO SCH (07:00)
[2024-08-06] MEDS: PENICILLIN G POT 5MIL/D5 50ML 50 ML IV ONE (07:28)
[2024-08-06] MEDS: levETIRAcetam 500 MG TAB PO SCH (07:29)
--- NOTE | 2024-08-06 08:10 | DVHPN2 ---
Chief Complaints Patient reports: No new complaints Nursing reports: No new complaints Objective Medications Current Medications Medications (Trade) Dose Ordered Sig/Juvenal Route PRN Reason Start Time Stop Time Status Last Admin Benzocaine (Dermoplast) 1 applic PRN PRN TOP PERINEAL AREA DISCOMFORT 08/05/24 20:15 08/05/24 23:15 Lactated Ringer's 1,000 ml @ 125 mls/hr Q8H IV 08/05/24 20:15 08/06/24 01:08 Levetiracetam (Keppra Tablet) 500 mg BID@0700,1900 PO 08/06/24 07:15 08/06/24 07:29 Lidocaine HCl (Xylocaine) 40 ml ONCE PRN IJ PERINEAL AREA DISCOMFORT 08/05/24 20:15 Misoprostol (Cytotec) 50 mcg Q4HPRN PRN PO CERVICAL RIPENING 08/05/24 20:15 08/06/24 00:00 Nalbuphine HCl (Nubain) 10 mg Q4HP PRN IV MODERATE PAIN (4-6 PAIN SCALE) 08/05/24 20:15 Ondansetron HCl (Zofran) 4 mg Q4HPRN PRN IV NAUSEA / VOMITING 08/06/24 07:00 Oxytocin 1,000 ml @ 6 ml/hr Q24H IV 08/06/24 06:00 Penicillin G Potassium [id number] units/Dextrose 50 ml @ 100 mls/hr Q4H IV 08/06/24 00:15 Sodium Lauryl Sulfate (Phisoderm) 240 ml PRN PRN TOP PERINEAL AREA DISCOMFORT 08/05/24 20:15 08/05/24 23:15 Ursodiol (Actigall) 300 mg TID PO 08/05/24 23:00 08/06/24 06:18 Witch She (Tucks) 1 pad PRN PRN TOP PERINEAL AREA DISCOMFORT 08/05/24 20:15 08/05/24 23:15 Others ve-4-5cm/70/-2 Studies Laboratory Tests 08/05/24 20:31 Test 08/05/24 20:31 Range/Units Serum Glucose 103 74-106 mg/dL Ass/Plan Assessment iol for cholestasis of preg Plan pt is being induced bc of cholestasis ,pt never picked up her actigal ,never did her bile acid tests but continued with itchinmg due to possib of iufd pt is subseq being induced for cholestasis .pt understands the risk of RDS ,SHORT TERM AND INTERMEDIATE MORB AND MORTALITY Visit Coding OBGYN Date of Service: Aug 06, 2024 Billing Provider: CADNY WALTON DO CANAL LOCK TENDER CHIEF OPERATOR Common Visit Codes: [id number] INP/OBS CARE(HIGH) CANAL LOCK TENDER CHIEF OPERATOR Procedure Codes: 02523-95- NON-STRESS TEST CANDY WALTON DO Aug 06, 2024 08:10
[2024-08-06] MEDS: fentaNYL CITRATE 100 MCG/2 ML VL IV ONE (10:37)
[2024-08-06] MEDS: LIDOCAINE HCL 2 %PF INJ 10ML AMP IJ ONE (10:38)
[2024-08-06] MEDS: ROPIVACAINE HCL 200 ML ONE (10:39)
--- NOTE | 2024-08-06 10:48 | EPIDURAL ---
Anesthesia Procedural Note - Epidural Date: Aug 06, 2024 Informed consent obtained?: Yes Medication Administered: Fentanyl 100 mcg 2% Lidocaine Administered: 5 Medication Administered: ePHEDrine 5 mg IV Sterile prept drape: Yes Spinal level of insertion: L2-L3 Test dose of lidocaine & Epine: Negative Infusion started: Yes Start time: 10:10 End time: 10:45 YUDI RAMIREZ MD Aug 06, 2024 10:48
[2024-08-06] MEDS ORDERED: SODIUM CHLORIDE 0.9% 500 ML IV PRN (11:00)
[2024-08-06] MEDS ORDERED: fentaNYL CITRATE 100 MCG/2 ML VL IV ONE (11:00)
[2024-08-06] MEDS ORDERED: fentaNYL 400mCg/200ml W ROPIVA 200 ML EPI SCH (11:00)
[2024-08-06] MEDS ORDERED: ePHEDrine SULFATE 50 MG/ML AMP IV ONE (11:00)
[2024-08-06] MEDS: ePHEDrine SULFATE 50 MG/ML AMP IV ONE (11:18)
[2024-08-06] MEDS: PENICILLIN G POTASSIUM 2,500,000 UNITS in D5W 5% 50 ML IV SCH (11:26)
[2024-08-06] MEDS: LACT. RINGERS/OXYTOCIN 20UNITS 1,000 ML IV SCH (13:11)
--- NOTE | 2024-08-06 16:17 | DVHPN2 ---
[facility] Labor Progress Note Date and Time Seen Date Seen: Aug 06, 2024 Time Seen: 15:20 Subjective Patient reports: No new complaints Objective Vital Signs VSS Monitoring Method Monitoring Method: External Heart Rate Heart Rate Baseline: 135 Heart Rate Variability: Moderate Presence of FHR Accelerations: Yes Presence of FHR Decelerations: Yes Heart Rate Type of Decel: Early Deceleraions, Variable Decelerations Are all 5 Components of the FH: Yes (Q 2-3min) Contractions Contractions Frequency: Other Duration of Contraction: 90 Contractions Intensity: Moderate Contractions Resting Tone: Relaxed Membranes Membranes: Intact Vaginal Exam Vag Exam Deferred: No Vaginal Exam Dilation: 10 Vaginal Exam Effacement: 100 Vaginal Exam Station: -1 Vaginal Exam Presentation: VTX Vaginal Exam Show: Small Medications Medications - Pitocin: Yes Medication - Epidural: Yes Lab Results Lab Results Vital Signs Date Time Temp Pulse Resp B/P (MAP) Pulse Ox O2 Delivery O2 Flow Rate FiO2 08/06/24 10:37 113/64 Current Medications Medications (Trade) Dose Ordered Sig/Juvenal Start Time Stop Time Status Last Admin Dose Admin Lactated Ringer's 1,000 ml @ 125 mls/hr Q8H 08/05/24 20:15 08/06/24 10:58 125 MLS/HR Nalbuphine HCl (Nubain) 10 mg Q4HP PRN 08/05/24 20:15 Penicillin G Potassium 50 ml @ 100 mls/hr ONCE ONCE 08/05/24 20:15 08/05/24 21:37 DC 08/06/24 07:28 100 MLS/HR Penicillin G Potassium [id number] units/Dextrose 50 ml @ 100 mls/hr Q4H 08/06/24 00:15 08/06/24 15:01 100 MLS/HR Monica Nowak (Tucks) 1 pad PRN PRN 08/05/24 20:15 08/05/24 23:15 1 PAD Sodium Lauryl Sulfate (Phisoderm) 240 ml PRN PRN 08/05/24 20:15 08/05/24 23:15 240 ML Benzocaine (Dermoplast) 1 applic PRN PRN 08/05/24 20:15 08/05/24 23:15 1 APPLIC Misoprostol (Cytotec) 50 mcg Q4HPRN PRN 08/05/24 20:15 08/06/24 00:00 50 MCG Lidocaine HCl (Xylocaine) 40 ml ONCE PRN 08/05/24 20:15 Ursodiol (Actigall) 300 mg BID 08/05/24 22:00 08/05/24 22:59 DC Levetiracetam (Keppra Tablet) 600 mg BID@0700,1900 08/06/24 07:00 08/06/24 07:15 DC Ursodiol (Actigall) 300 mg TID 08/05/24 23:00 08/06/24 14:32 300 MG Oxytocin 1,000 ml @ 6 ml/hr Q24H 08/06/24 06:00 08/06/24 13:11 6 ML/HR Oxytocin 500 ml @ 999 mls/hr Q31M ONCE 08/06/24 06:00 08/06/24 06:30 DC Oxytocin 500 ml @ 125 mls/hr Q4H ONCE 08/06/24 06:30 08/06/24 10:29 DC Naloxone HCl (Narcan) 0.2 mg PRN ONCE 08/06/24 06:45 08/06/24 06:46 DC Ephedrine Sulfate (ePHEDrine SULFATE) 10 mg PRN ONCE 08/06/24 06:45 08/06/24 06:46 DC 08/06/24 11:18 10 MG Fentanyl Citrate 100 mcg ONCE ONCE 08/06/24 06:45 08/06/24 06:46 DC 08/06/24 10:37 100 MCG Lidocaine HCl (Xylocaine-Pf 2% Injection) 10 ml ONCE ONCE 08/06/24 06:45 08/06/24 06:46 DC 08/06/24 10:38 10 ML Lactated Ringer's 500 ml @ 500 mls/hr Q1H ONCE 08/06/24 06:45 08/06/24 07:44 DC Lidocaine/ Epinephrine (Xylocaine-Mpf/ Epinephrine 1.5 %-1:980270) 10 ml ONCE ONCE 08/06/24 06:45 08/06/24 06:46 DC Ondansetron HCl (Zofran) 4 mg Q4HPRN PRN 08/06/24 07:00 Levetiracetam (Keppra Tablet) 500 mg BID@0700,1900 08/06/24 07:15 08/06/24 07:29 500 MG Sodium Chloride 500 ml @ 500 mls/hr Q1H PRN 08/06/24 11:00 Naloxone HCl (Narcan) 0.2 mg PRN ONCE 08/06/24 11:00 08/06/24 11:01 DC Ephedrine Sulfate (ePHEDrine SULFATE) 10 mg PRN ONCE 08/06/24 11:00 08/06/24 11:01 DC Fentanyl Citrate 100 mcg ONCE ONCE 08/06/24 11:00 08/06/24 11:01 DC Fentanyl/ Ropivacaine 200 ml @ 10 mls/hr UD 08/06/24 11:00 08/08/24 10:59 Laboratory Tests Test 08/06/24 15:06 08/05/24 20:31 08/05/24 20:30 08/05/24 20:11 Range/Units POC Glucose 84 70-106 mg/dl White Blood Count 8.9 4.4-10.8 10^3/uL Red Blood Count 4.36 4.0-5.20 10^6/uL Hemoglobin 13.5 12.2-16.2 g/dL Hematocrit 38.8 36.0-46.0 % Mean Corpuscular Volume 88.9 80.0-100.0 fL Mean Corpuscular Hemoglobin 30.9 28.0-32.0 pg Mean Corpuscular Hemoglobin Concent 34.8 32.0-36.0 g/dL Red Cell Distribution Width 13.6 11.8-14.3 % Platelet Count 323 140-450 10^3/uL Mean Platelet Volume 8.2 6.9-10.8 fL Neutrophils (%) (Auto) 70.6 37.0-80.0 % Lymphocytes (%) (Auto) 21.5 10.0-50.0 % Monocytes (%) (Auto) 6.3 0.0-12.0 % Eosinophils (%) (Auto) 1.3 0.0-7.0 % Basophils (%) (Auto) 0.3 0.0-2.0 % Neutrophils # (Auto) 6.3 1.6-8.6 10 ^3/uL Lymphocytes # (Auto) 1.9 0.4-5.4 10 ^3/uL Monocytes # (Auto) 0.6 0-1.3 10 ^3/uL Eosinophils # (Auto) 0.1 0-0.8 10 ^3/uL Basophils # (Auto) 0 0-0.2 10 ^3/uL Nucleated Red Blood Cells 0.1 % Prothrombin Time 9.7 9.3-11.8 sec Prothrombin Time INR 0.91 0.9-1.15 Activated Partial Thromboplast Time 24.6 24.5-34.5 SEC Sodium Level 141 136-145 mmol/L Potassium Level 3.8 3.5-5.1 mmol/L Chloride Level 106 98-107 mmol/L Carbon Dioxide Level 23 20-31 mmol/L Anion Gap 12 5-15 Blood Urea Nitrogen 5 L 9-23 mg/dL Creatinine 0.52 L 0.550-1.02 mg/dL Glomerular Filtration Rate Calc 128 >90 mL/min BUN/Creatinine Ratio 9.6 L 10.0-20.0 Serum Glucose 103 74-106 mg/dL Calcium Level 9.9 8.7-10.4 mg/dL Total Bilirubin 0.5 0.2-1.0 mg/dL Aspartate Amino Transferase (AST) 21 13-40 U/L Alanine Aminotransferase (ALT) 11 7-40 U/L Alkaline Phosphatase 131 H 46-116 U/L Total Protein 6.9 5.7-8.2 g/dL Albumin 4.2 3.2-4.8 g/dL Treponema pallidum Antibody Non-reactive Negative Urine Color Colorless Yellow Urine Clarity Clear Clear Urine pH 6.5 5.0-9.0 Urine Specific Almond 1.003 1.001-1.035 Urine Protein Negative Negative Urine Ketones Negative Negative Urine Blood Negative Negative /uL Urine Nitrite Negative Negative Urine Bilirubin Negative Negative Urine Urobilinogen Normal Negative mg/dL Urine Leukocyte Esterase Negative Negative /uL Urine RBC None seen 0 - 4 /hpf Urine Microscopic WBC < 1 0-5 /HPF Urine Squamous Epithelial Cells Few <5 /hpf Urine Bacteria None seen None Seen /hpf Urine Glucose Normal Normal mg/dL Urine Opiates Screen Neg NEGATIVE Urine Fentanyl Screen Neg NEGATIVE Urine Barbiturates Screen Neg NEGATIVE Urine Phencyclidine Screen Neg NEGATIVE Urine Amphetamines Screen Neg NEGATIVE Urine Benzodiazepines Screen Neg NEGATIVE Urine Cocaine Screen Neg NEGATIVE Urine Cannabinoids Screen Neg NEGATIVE Assessment Assessment IUP at 37weeks Cholestasis of IOL for above GDMA2 h/o multiple loss h/o Epilepsy Plan Plan AROM - performed at 1523, clear, moderate amount Continue EFM Intrauterine resuscitation PRN Position to facilitate descent Supportive care Plan discussed with: Patient, Spouse Visit Coding OBGYN Date of Service: Aug 06, 2024 Billing Provider: SANDRA NELSON CNM SHUTTLE FINAL INSPECTOR Common Visit Codes: [id number] INP/OBS CARE(HIGH) SHUTTLE FINAL INSPECTOR Procedure Codes: 72257-43- NON-STRESS TEST SANDRA NELSON CNM Aug 06, 2024 16:17
[2024-08-06] MEDS: LACT. RINGERS/OXYTOCIN 20UNITS 500 ML IV ONE ×2 (16:38→16:39)
--- NOTE | 2024-08-06 16:59 | LDN2 ---
Labor and Delivery Note Date 08/06/24 Age 28 14 Para 2 AB 11 (SAb x10, Ectopic x1) EDC 08/27/2024 EGA 37w 0d Diagnosis IUP at 37weeks Cholestasis of IOL for above GDMA2 h/o multiple loss IBS-C h/o Epilepsy; well controlled on Keppra Vaginal Delivery: VTX Vacuum Assisted: No Placenta: Spontaneous Sex: Female Weight Yet to be weighed - bonding time / boyce hour Apgars 8 and 9 at one anad five minutes of life respectively Nuchal Cord Transected: No (Reduced) Amniotic Fluid: Clear Anesthesia Labor Epidural Episiotomy: No Extension: No EBL 100mL Labs Laboratory Tests 01/03/24 12:03: Hepatitis B Surface Antigen Negative, HIV (1&2) Antibody Negative, Rubella Antib barbra Positive Blood Bank 08/05/24 20:31: Blood Type O POSITIVE Complications None Conditions Mother and baby stable [employer] Comments/Significant Med Roxy h/o Epilepsy; well controlled on Keppra IBS-C Cholestasis of IOL for above GDMA2 h/o multiple loss h/o Tonsillectomy, laparotomy, & Cholecystectomy Delivery Note At 1543 28yo, now delivered a viable Female infant w nuchal cord by w/ Score of 8 & 9 at one and five minutes of life respectively. DOV position placed skin to skin on pts chest. Cord clamped and cut after pulsation ceased. Cord blood sent. Intact 3-vessel cord placenta delivered spontaneously, Nick. Pitocin IV bolus started. Placenta sent to pathology. Patient had labor epidural anesthesia. Perineum intact Cervix/vagina inspected via speculum exam. Both intact Fundus at U, firm, midline, and light lochia. QBL 100ml. VSS. Count correct x2. Patient to care and baby to couplet care, both stable. Visit Coding OBGYN Date of Service: Aug 06, 2024 Billing Provider: SANDRA NELSON CNM TAXATION ECONOMIST Common Visit Codes: [id number] INP/OBS CARE(HIGH) TAXATION ECONOMIST Procedure Codes: [id number] DELIVERY ONLY SANDRA NELSON CNM Aug 06, 2024 16:59
[2024-08-06] MEDS ORDERED: ACETAMINOPHEN 325 MG TAB PO PRN (17:00)
[2024-08-06 19:00] VITALS: BP 99/58; PULSE 85; RESP 16; TEMP 98.2; O2SAT 96
[2024-08-06 23:00] VITALS: BP 106/62; PULSE 105; RESP 16; TEMP 98.7; O2SAT 96
[2024-08-07] MEDS: IBUPROFEN 600 MG TAB PO PRN (00:28)
--- NOTE | 2024-08-07 02:36 | DVHPN2 ---
Progress Note Date Seen: Aug 07, 2024 Subjective S: Lochia minimal Tolerating regular diet well. Ambulating and voiding well w/o feeling lightheaded or dizzy. Passing flatus but no BM yet. Breast feeding. Contraceptive plan: Desires and requests to be discharged home today vital signs Vital Sign Date Time Temp Pulse Resp B/P (MAP) Pulse Ox O2 Delivery O2 Flow Rate FiO2 08/06/24 23:00 98.7 105 16 106/62 (77) 96 98.7 08/06/24 18:30 Room Air Total Intake and Output 08/06/24 08/06/24 08/07/24 15:00 23:00 07:00 Output Total 1575 ml Balance -1575 ml medications Current Medications Medications Dose Ordered Sig/Juvenal Route Start Time Stop Time Status Last Admin Dose Admin Lactated Ringer's 1,000 ml @ 125 mls/hr Q8H IV 08/05/24 20:15 08/06/24 10:58 125 MLS/HR Nalbuphine HCl 10 mg Q4HP PRN IV 08/05/24 20:15 Penicillin G Potassium [id number] units/Dextrose 50 ml @ 100 mls/hr Q4H IV 08/06/24 00:15 08/06/24 15:01 100 MLS/HR Witch She 1 pad PRN PRN TOP 08/05/24 20:15 08/05/24 23:15 1 PAD Sodium Lauryl Sulfate 240 ml PRN PRN TOP 08/05/24 20:15 08/05/24 23:15 240 ML Benzocaine 1 applic PRN PRN TOP 08/05/24 20:15 08/05/24 23:15 1 APPLIC Misoprostol 50 mcg Q4HPRN PRN PO 08/05/24 20:15 08/06/24 00:00 50 MCG Lidocaine HCl 40 ml ONCE PRN IJ 08/05/24 20:15 Ursodiol 300 mg TID PO 08/05/24 23:00 08/06/24 14:32 300 MG Oxytocin 1,000 ml @ 6 ml/hr Q24H IV 08/06/24 06:00 08/06/24 13:11 6 ML/HR Ondansetron HCl 4 mg Q4HPRN PRN IV 08/06/24 07:00 Levetiracetam 500 mg BID@0700,1900 PO 08/06/24 07:15 08/06/24 19:02 500 MG Sodium Chloride 500 ml @ 500 mls/hr Q1H PRN IV 08/06/24 11:00 Fentanyl/ Ropivacaine 200 ml @ 10 mls/hr UD EPI 08/06/24 11:00 08/08/24 10:59 Ibuprofen 600 mg Q6HP PRN PO 08/06/24 17:00 08/07/24 00:28 600 MG Acetaminophen 650 mg Q4HP PRN PO 08/06/24 17:00 laboratory and microbiology Laboratory Tests 08/05/24 20:31 Test 08/05/24 20:31 Range/Units Serum Glucose 103 74-106 mg/dL Objective O: A&O x3 NAD. Afebrile, VSS Chest: heart and lung sounds normal. Breasts: Nipples intact w/o cracks or soreness Abdomen: normal BS, soft, non-tender, no rebound or guarding, fundus firm @ U- 1, lochia minimal Perineum:- intact, no edema, or erythema, Extremities: no edema or tenderness Lochia - minimal Assessment/Plan 28 yo now ppd#1 s/p doing well. 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
--- NOTE | 2024-08-07 02:47 | DVHDS2 ---
Discharge Summary Date of Admission Aug 05, 2024 at 19:53 Date of Discharge: Aug 07, 2024 Admitting Diagnosis IUP at 36w 6d Cholestasis of IOL for above GDMA1 Epilepsy; well controlled on Keppra Labs/Diagnostic Data: Laboratory Results Test 08/06/24 15:06 08/05/24 20:31 08/05/24 20:30 08/05/24 20:11 POC Glucose 84 mg/dl (70-106) White Blood Count 8.9 10^3/uL (4.4-10.8) Red Blood Count 4.36 10^6/uL (4.0-5.20) Hemoglobin 13.5 g/dL (12.2-16.2) Hematocrit 38.8 % (36.0-46.0) Mean Corpuscular Volume 88.9 fL (80.0-100.0) Mean Corpuscular Hemoglobin 30.9 pg (28.0-32.0) Mean Corpuscular Hemoglobin Concent 34.8 g/dL (32.0-36.0) Red Cell Distribution Width 13.6 % (11.8-14.3) Platelet Count 323 10^3/uL (140-450) Mean Platelet Volume 8.2 fL (6.9-10.8) Neutrophils (%) (Auto) 70.6 % (37.0-80.0) Lymphocytes (%) (Auto) 21.5 % (10.0-50.0) Monocytes (%) (Auto) 6.3 % (0.0-12.0) Eosinophils (%) (Auto) 1.3 % (0.0-7.0) Basophils (%) (Auto) 0.3 % (0.0-2.0) Neutrophils # (Auto) 6.3 10 ^3/uL (1.6-8.6) Lymphocytes # (Auto) 1.9 10 ^3/uL (0.4-5.4) Monocytes # (Auto) 0.6 10 ^3/uL (0-1.3) Eosinophils # (Auto) 0.1 10 ^3/uL (0-0.8) Basophils # (Auto) 0 10 ^3/uL (0-0.2) Nucleated Red Blood Cells 0.1 % Prothrombin Time 9.7 sec (9.3-11.8) Prothrombin Time INR 0.91 (0.9-1.15) Activated Partial Thromboplast Time 24.6 SEC (24.5-34.5) Sodium Level 141 mmol/L (136-145) Potassium Level 3.8 mmol/L (3.5-5.1) Chloride Level 106 mmol/L (98-107) Carbon Dioxide Level 23 mmol/L (20-31) Anion Gap 12 (5-15) Blood Urea Nitrogen 5 mg/dL (9-23) Creatinine 0.52 mg/dL (0.550-1.02) Glomerular Filtration Rate Calc 128 mL/min (>90) BUN/Creatinine Ratio 9.6 (10.0-20.0) Serum Glucose 103 mg/dL (74-106) Calcium Level 9.9 mg/dL (8.7-10.4) Total Bilirubin 0.5 mg/dL (0.2-1.0) Aspartate Amino Transferase (AST) 21 U/L (13-40) Alanine Aminotransferase (ALT) 11 U/L (7-40) Alkaline Phosphatase 131 U/L (46-116) Total Protein 6.9 g/dL (5.7-8.2) Albumin 4.2 g/dL (3.2-4.8) Treponema pallidum Antibody Non-reactive (Negative) Urine Color Colorless (Yellow) Urine Clarity Clear (Clear) Urine pH 6.5 (5.0-9.0) Urine Specific [place] 1.003 (1.001-1.035) Urine Protein Negative (Negative) Urine Ketones Negative (Negative) Urine Blood Negative /uL (Negative) Urine Nitrite Negative (Negative) Urine Bilirubin Negative (Negative) Urine Urobilinogen Normal mg/dL (Negative) Urine Leukocyte Esterase Negative /uL (Negative) Urine RBC None seen /hpf (0 - 4) Urine Microscopic WBC < 1 /HPF (0-5) Urine Squamous Epithelial Cells Few /hpf (<5) Urine Bacteria None seen /hpf (None Seen) Urine Glucose Normal mg/dL (Normal) Urine Opiates Screen Neg (NEGATIVE) Urine Fentanyl Screen Neg (NEGATIVE) Urine Barbiturates Screen Neg (NEGATIVE) Urine Phencyclidine Screen Neg (NEGATIVE) Urine Amphetamines Screen Neg (NEGATIVE) Urine Benzodiazepines Screen Neg (NEGATIVE) Urine Cocaine Screen Neg (NEGATIVE) Urine Cannabinoids Screen Neg (NEGATIVE) Other Laboratory Tests 6/7/25 20:31 Brief Hx & Hospital Course: Ms Tang was admitted on 08/05/24 at 36w 6d EGA for IOL d/t Cholestasis of . Induction process started with cervical ripening medication, followed by Oxytocin augmentation. Patient then had an uneventful labor, got labor epidural for pain relief. She progressed to 2nd stage of labor and had a over an intact perineum. (See Delivery Note for details) Normal course; meeting milestones w/o any problem or complications. Operations or Procedures IOL Condition at Discharge: Good Final Diagnosis/Problems List Same Early Term - delivered Discharge Disposition: Home Discharge Instruct/Medications Diet: Regular Diet comment: Routine regular diet rich in fiber, protein, iron and vitamin C with adequate fluid intake. Activity: No Restrictions, As Tolerated Activity comment: Unrestricted. Advance as tolerated. Balance activities with rest periods. No heavy lifting, pushing or straining. Pelvic rest x 6week. Follow Up/Referral: self care instructions given. emergency signs and symptoms including but not limited to pre-eclampsia precautions and signs of infection, PPH & of PPD reviewed with patient. Follow up with OB Provider in 1 week Medications: Ibuprofen 600mg every 6 hours as needed for pain. Continue Vitamin and iron Discharge Statement: self care instructions given. emergency signs and symptoms including but not limited to pre-eclampsia precautions and signs of infection, PPH & of PPD reviewed with patient. Follow up with OB Provider in 1 week "Patient was advised to return to the ER or call 911 if any headaches, dizziness, shortness of breath, chest pain, abdominal pain, bleeding, fevers, or worsening of medical condition. Patient was counseled about treatment plan, medications, possible side effects, patientverbalized understanding. All questions were answered to the best of my ability. This discharge took greater then 30 minutes in planning, reviewing documentation, counseling the patient, and discussing with other team members." ASSESSMENT ASSESSMENT Hospital Course Ms Tang was admitted on 08/05/24 at 36w 6d EGA for IOL d/t Cholestasis of . Induction process started with cervical ripening medication, followed by Oxytocin augmentation. Patient then had an uneventful labor, got labor epidural for pain relief. She progressed to 2nd stage of labor and had a over an intact perineum. (See Delivery Note for details) Normal course; meeting milestones w/o any problem or complications. Assessment IUP at 37weeks - Delivered Cholestasis of IOL for above GDMA2 Epilepsy; well controlled on Keppra Visit Coding OBGYN Date of Service: Aug 07, 2024 Billing Provider: SANDRA NELSON CNM BRADDER Common Visit Codes: [id number]/OBS DISCH DAY <30MIN SANDRA NELSON CNM Aug 07, 2024 02:47
[2024-08-07 03:10] VITALS: BP 90/55; PULSE 85; RESP 16; TEMP 98; O2SAT 96
[2024-08-07 06:58] VITALS: BP 98/55; PULSE 76; RESP 16; TEMP 98.2; O2SAT 97
[2024-08-07 15:00] VITALS: BP 121/68; PULSE 89; RESP 16; TEMP 98.6; O2SAT 98
[2024-08-07] MEDS: TETANUS-DIPTH-ACEL PERTUSSIS 0.5ML SYR Tdap IM ONE (16:48)
[2024-08-07] MEDS: MEASLES, MUMPS & RUBELLA VAC(MMRII) 0.5ML SC ONE (16:49)
== END 2024-08-07 17:22 | disposition home or self-care (01) | DRG 560 ==
LOC: LDRP 19:53
PROVIDERS: ADMIT Obstetrics & Gynecology; ATTEND Obstetrics & Gynecology
PROC: 10E0XZZ Delivery of Products of Conception, External Approach (ICD-10-PCS; principal; 2024-08-06)
PROC: 3E033VJ Introduction of Other Hormone into Peripheral Vein, Percutaneous Approach (ICD-10-PCS; 2024-08-06)
PROC: 3E0R3BZ Introduction of Anesthetic Agent into Spinal Canal, Percutaneous Approach (ICD-10-PCS; 2024-08-06)
PROC: 00HU33Z Insertion of Infusion Device into Spinal Canal, Percutaneous Approach (ICD-10-PCS; 2024-08-06)
DX: O26.643 Intrahepatic cholestasis of pregnancy, third trimester (principal); Z37.0 Single live birth; O99.354 Diseases of the nervous system complicating childbirth; G40.909 Epilepsy, unspecified, not intractable, without status epilepticus; O24.420 Gestational diabetes mellitus in childbirth, diet controlled; K58.1 Irritable bowel syndrome with constipation; O69.81X0 Labor and delivery complicated by cord around neck, without compression, not applicable or unspecified; O99.62 Diseases of the digestive system complicating childbirth; Z88.8 Allergy status to other drugs, medicaments and biological substances; Z79.899 Other long term (current) drug therapy; Z3A.37 37 weeks gestation of pregnancy
CPT/HCPCS: 36415; 59025; 59409; 62282; 80053; 80307; 81001; 82948; 82962; 85025; 85610; 85730; 86780; 86850; 86900; 86901; 90715; 94760; 94762; 96360; 96361; 96365; 96366; 96372; G0378; J2540; J2590; J7060

== ENCOUNTER 2024-12-11 09:47 | Emergency (ER) | payer MEDICAID ==
[~2024-12-11] VITALS: Ht 162.6 cm; Wt 88.0 kg
--- NOTE | 2024-12-11 10:18 | ED.PDOC ---
CLINIC DIRECTOR HPI Comments 29 year old female presents to the ED with a chief compliant of vaginal bleeding onset 11/23/24. Patient states she began menstrual cycle on 11/23/24, since then has been bleeding, constant flow. Patient saw OBGYN Dr. Reyes on 12/06/24, has ultrasound and blood work scheduled for next week. Last night, patient began experiencing lightheadedness, bilateral flank pain, rates pain 5/10. Denies fever, chills, nausea, vomiting, diarrhea, headache, chest pain, shortness of breath, dysuria, hematemesis. No other symptoms or modifying factors present at this time. Chief Complaint: Vaginal Bleed Time Seen by MD: 10:05 Reviewed Notes: Medications, Allergies Allergies: Coded Allergies: Sumatriptan (Verified Adverse Reaction, Mild, 08/05/24) Throat felt tight but no problem breathing Home Meds Active Scripts Nitrofurantoin Monohydrate Mac (Macrobid) 100 Mg Cap, 100 MG PO BID, #14 CAP Prov:KASSI LOPEZ MD 03/07/24 Ondansetron Odt 4MG Tab (ZOFRAN PO) 4 Mg Tb, 4 MG PO Q6HP PRN, #15 TAB ODT TAB-DISSOLVE IN MOUTH, THEN SWALLOW Prov:ANA CARSON PAC 11/30/22 Tramadol Hcl (Tramadol Hcl) 50 Mg Tab, 50 MG PO Q6HP PRN, #15 TAB Prov:ANA CARSON PAC 11/30/22 Ibuprofen (Ibuprofen) 600 Mg Tab, 1 TAB PO TID for 5 Days, #15 TAB Prov:ANA CARSON PAC 01/16/22 Ondansetron (Zofran) 4 Mg Tab, 4 MG PO Q4HPRN PRN, #30 TAB Prov:CANDY REYES DO 12/01/21 Ibuprofen (Ibuprofen) 800 Mg Tab, 800 MG PO TID PRN for 15 Days, #40 TAB Prov:CANDY REYES DO 12/01/21 Hydrocodone-Acetaminophen (Hydrocodone Bitartrate/AC 5-325 mg) 1 Tab Tab, 1 TAB PO Q6HP PRN for 5 Days, #20 TAB Prov:CANDY REYES DO 12/01/21 Cephalexin Monohydrate (Cephalexin) 500 Mg Tab, 1 TAB PO QID, #40 TAB Prov:CANDY REYES DO 12/01/21 Reported Medications Ursodiol (Ursodiol) 300 Mg Cap, 300 MG PO, CAP 08/04/24 Vit W/ Ferrous Fumara ( One Daily) Daily Tab, 1 TAB PO DAILY, #90 TAB 3 Refills 07/10/24 Information Source: Patient Mode of Arrival: Ambulatory Timing: Weeks Prehospital treatment: None Severity: Moderate Vaginal Discharge: None Vaginal Lesions: None Bleeding Quality: Bright Red Vaginal Mass: None Onset Of Mass/Bleeding: Menstrual Last Consensual [place]: Unknown Control: None Symptoms of Possible : None Associated Signs and Symptoms: Vaginal Bleeding Past Medical History PAST MEDICAL HISTORY: Seizures Surgical History: Cholecystectomy, Tonsillectomy 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 , Spontaneous Family History Family History: Family hx of DM Social History Smoker: Non-Smoker Alcohol: Denies ETOH Use Drugs: Denies Drug Use Lives In: Home Constitutional: denies: chills, diaphoresis, fatigue, fever, malaise, sweats, weakness, others EENTM: denies: blurred vision, double vision, ear bleeding, ear discharge, ear drainage, ear pain, ear ringing, eye pain, eye redness, hearing loss, mouth pain, mouth swelling, nasal discharge, nose bleeding, nose congestion, nose pain, photophobia, tearing, throat pain, throat swelling, voice changes, others Respiratory: denies: cough, hemoptysis, orthopnea, SOB at rest, shortness of breath, SOB with excertion, stridor, wheezing, others Cardiovascular: denies: chest pain, dizzy spells, diaphoresis, Dyspnea on exertion, edema, irregular heart beat, left arm pain, lightheadedness, pal pitations, PND, syncope, others Gastrointestinal: denies: abdomen distended, abdominal pain, blood streaked bowels, constipated, diarrhea, dysphagia, difficulty swallowing, hematemesis, melena, nausea, poor appetite, poor fluid intake, rectal bleeding, rectal pain, vomiting, others Genitourinary: reports: abnormal vagina bleeding, flank pain; denies: burning, dyspareunia, dysuria, frequency, hematuria, incontinence, pain, , vagina discharge, urgency, others Neurological: denies: dizziness, fainting, headache, left sided numbness, left sided weakness, numbness, paresthesia, pre-existing deficit, right sided numbness, right sided weakness, seizure, speech problems, tingling, tremors, weakness, others Musculoskeletal: denies: back pain, gout, joint pain, joint swelling, muscle pain, muscle stiffness, neck pain, others Integumetry: denies: bruises, change in color, change in hair/nails, dryness, laceration, lesions, lumps, rash, wounds, others Allergic/Immunocompromised: denies: Difficulty Healing, Frequent Infections, Hives, Itching, others Hematologic/Lymphatic: denies: anemia, blood clots, easy bleeding, easy bruising, swollen glands, others Endocrine: denies: excessive hunger, excessive sweating, excessive thirst, excessive urination, flushing, intolerance to cold, intolerance to heat, une xplained weight gain, unexplained weight loss, others Psychiatric: denies: anxiety, bipolar disorder, depression, hopeless, panic disorder, schizophrenia, sleepless, suicidal, others All Other Systems: Reviewed and Negative Physical Exam General Appearance: Normal HEENT: Normal ENT Inspection, Pharynx Normal, TMs Normal Neck: Full Range of Motion, Non-Tender, Normal, Normal Inspection Respiratory: Chest Non-Tender, Lungs Clear, No Accessory Muscle Use, No Respiratory Distress, Normal Breath Sounds Cardiovascular: No Edema, No JVD, No Murmur, No Gallop, Normal Peripheral Pulses, Regular Rate/Rhythm Breast Exam: Deferred Gastrointestinal: No Organomegaly, Non Tender, No Pulsatile Mass, Normal Bowel Sounds, Soft Genitalia: Deferred Pelvic: Deferred Rectal: Deferred Extremities: No calf tenderness, Normal capillary refill, Normal inspection, Normal range of motion, Non-tender, No pedal edema Musculoskeletal : Apperance: Normal Neurologic: Alert, senior advocate II-XII nml as Tested, No Motor Deficits, Normal Affect, Normal Mood, No Sensory Deficits Cerebellar Function: Normal Reflexes: Normal Skin: Dry, Normal Color, Warm Lymphatic: No Adenopathy Was a procedure done? Was a procedure done?: No Differential Diagnosis (PLATE INSPECTOR) Vaginal Bleeding: - Complete, - Incomplete, - Inevitable, Menorrhagia, Menometrorrhagia X-Ray, Labs, Meds, VS Vital Signs Date Time Temp Pulse Resp B/P (MAP) Pulse Ox O2 Delivery O2 Flow Rate FiO2 12/11/24 09:48 97.8 75 18 126/77 96 97.8 Lab Test 12/11/24 10:10 Range/Units White Blood Count 6.3 4.4-10.8 10^3/uL Red Blood Count 4.64 4.0-5.20 10^6/uL Hemoglobin 14.0 12.2-16.2 g/dL Hematocrit 41.3 36.0-46.0 % Mean Corpuscular Volume 88.9 80.0-100.0 fL Mean Corpuscular Hemoglobin 30.2 28.0-32.0 pg Mean Corpuscular Hemoglobin Concent 33.9 32.0-36.0 g/dL Red Cell Distribution Width 13.0 11.8-14.3 % Platelet Count 360 140-450 10^3/uL Mean Platelet Volume 6.8 L 6.9-10.8 fL Neutrophils (%) (Auto) 61.1 37.0-80.0 % Lymphocytes (%) (Auto) 31.6 10.0-50.0 % Monocytes (%) (Auto) 4.9 0.0-12.0 % Eosinophils (%) (Auto) 1.9 0.0-7.0 % Basophils (%) (Auto) 0.5 0.0-2.0 % Neutrophils # (Auto) 3.9 1.6-8.6 10 ^3/uL Lymphocytes # (Auto) 2.0 0.4-5.4 10 ^3/uL Monocytes # (Auto) 0.3 0-1.3 10 ^3/uL Eosinophils # (Auto) 0.1 0-0.8 10 ^3/uL Basophils # (Auto) 0 0-0.2 10 ^3/uL Nucleated Red Blood Cells 0.1 % Beta HCG, Quantitative 5022.4 H 1.5-4.2 mIU/mL Pelvic ultrasound shows: IMPRESSION: 1. Grossly unremarkable pelvic ultrasound. 2. Multiple sub cm cystic structures within the endometrial canal. 2 small determine contain a pole. Largest measures 3 mm x 3 mm x 3 mm. 3. HCG measures 5022 4. Exclude occult ectopic. Recommend follow-up study Quantitative hCG is 5022 The patient's CBC is within normal limits The patient is being discharged and will follow up with her OBGYN The patient is told that she still may have an ectopic and should return if she has a significant amount of increased pain Images Reviewed?: Images reviewed and evaluated by me Time of 1ST Reevaluation: 10:35 Reevaluation 1ST: Unchanged Patient Education/Counseling: Diagnosis, Treatment, Prognosis, Need For Follow Up Family Education/Counseling: No Family Present Departure 1 Departure Time of Disposition: 11:43 Impression: Primary Impression: Threatened Disposition: 01 HOME / SELF CARE / HOMELESS Condition: Fair Discharged With: Self Critical Care Note Critical Care Time?: No Stability Stability form required: No Heart Score Heart Score: Heart Score Response (Comments) Value History N/A 0 EKG N/A 0 Age N/A 0 Risk Factors N/A 0 Troponin N/A 0 Total 0 I personally scribed for JANICE DORADO MD ([email or web address]) on 12/11/24 at 10:18. Electronically submitted by Larissa Payne ([email or web address]). JANICE DORADO MD Dec 11, 2024 10:18
[2024-12-11 10:26] LABS: Hematocrit 41.3 % (36.0-46.0); Hemoglobin 14.0 g/dL (12.2-16.2); Mean Corpuscular Hemoglobin 30.2 pg (28.0-32.0); Mean Corpuscular Volume 88.9 fL (80.0-100.0); Nucleated Red Blood Cells % 0.1 %
--- NOTE | 2024-12-11 11:35 | DVH ---
INDICATION: pain and bleeding TECHNIQUE: Multiple real-time grayscale transabdominal and transvaginal sonographic images along with color and duplex Doppler of the uterus and ovaries were obtained. COMPARISON: OB ULTRASOUND COMP LESS 14WKS on DOS: 11/30/21 FINDINGS: The uterus measures 7.97 x x 6.32 6.41 cm. Transvaginally the uterus measures 8.35 by 4.5 4 x 4.99 ML. Uterine volume is 99.17 cm Uterine volume is 169.34 mL The endometrial stripe measures 1 .2 cm. Transvaginally endometrium measures 0.74 cm The right ovary measures 2.51 x 2.55 x 1.65 cm. Right ovarian volume is 5.52 mL there is a hypoechoi c area in the right ovary measuring 1.35 0.93 x 1.5 cm may represent a follicle. Trans vaginally righ t ovary measures 3.44 x 3.05 x 1.59 cm. Volume of the right ovary is 8.73 mL. Is a hypoechoic mass i n the right ovary measuring 1.36 x 1 x 1.14 cm. The left ovary measures 1.91 x 2.11 by 1.48 cm. Volume of the left ovary is 3.13 mL left ovary transv aginally measures 1.65 x 1.42 x 2.01 cm. Transvaginal left ovarian volume is 2.46 mL. Subsequent color and duplex Doppler interrogation of the ovaries demonstrated symmetric vascular flow to both ovaries, though this does not exclude the possibility of torsion due to the dual blood suppl y. IMPRESSION: 1. Grossly unremarkable pelvic ultrasound. 2. Multiple sub cm cystic structures within the endometrial canal. 2 small determine contain a pole. Largest measures 3 mm x 3 mm x 3 mm. 3. HCG measures 5022 4. Exclude occult ectopic. Recommend follow-up study
[2024-12-11 11:52] VITALS: BP 125/78; PULSE 70; RESP 17; TEMP 97.9; O2SAT 99
== END 2024-12-11 11:54 | disposition home or self-care (01) ==
LOC: ER 09:47
DX: O20.0 Threatened abortion (principal); Z79.899 Other long term (current) drug therapy; Z90.89 Acquired absence of other organs; Z90.49 Acquired absence of other specified parts of digestive tract; Z87.59 Personal history of other complications of pregnancy, childbirth and the puerperium; Z79.1 Long term (current) use of non-steroidal anti-inflammatories (NSAID); Z3A.01 Less than 8 weeks gestation of pregnancy
CPT/HCPCS: 36415; 76801; 76817; 84702; 85025

== ENCOUNTER 2024-12-15 16:08 | Inpatient (IN) | payer MEDICAID ==
[~2024-12-15] VITALS: Ht 162.6 cm; Wt 95.2 kg
[2024-12-15] MEDS: SODIUM CHLORIDE 0.9% 1,000 ML IV ONE (01:20)
--- NOTE | 2024-12-15 17:02 | ED.PDOC ---
HEALTH INFORMATICS SPECIALIST HPI Comments 29 y.o female presents to the ED for a chief complaint of vaginal spotting associated with pelvic cramping that started 1-2 days ago. Patient is , however does not know her gestation time but her last menstrual cycle was on 10/23/24. Patient was seen by Dr. Reyes HEALTH INFORMATICS SPECIALIST 4 days ago, had an US that was unable to determine fetus but had an HCG of 5380. Patient has a history of with multiple miscarriages and one ectopic . She denies any nausea, vomiting, back pain. Vital signs were stable. Chief Complaint: Abdominal Pain Time Seen by MD: 16:55 Reviewed Notes: Nurses Notes, Medications, Allergies Allergies: Coded Allergies: Sumatriptan (Verified Adverse Reaction, Mild, 08/05/24) Throat felt tight but no problem breathing Home Meds Active Scripts Nitrofurantoin Monohydrate Mac (Macrobid) 100 Mg Cap, 100 MG PO BID, #14 CAP Prov:KASSI LOPEZ MD 03/07/24 Ondansetron Odt 4MG Tab (ZOFRAN PO) 4 Mg Tb, 4 MG PO Q6HP PRN, #15 TAB ODT TAB-DISSOLVE IN MOUTH, THEN SWALLOW Prov:ANA CARSON PAC 11/30/22 Tramadol Hcl (Tramadol Hcl) 50 Mg Tab, 50 MG PO Q6HP PRN, #15 TAB Prov:ANA CARSON PAC 11/30/22 Ibuprofen (Ibuprofen) 600 Mg Tab, 1 TAB PO TID for 5 Days, #15 TAB Prov:ANA CARSON PAC 01/16/22 Ondansetron (Zofran) 4 Mg Tab, 4 MG PO Q4HPRN PRN, #30 TAB Prov:CANDY REYES DO 12/01/21 Ibuprofen (Ibuprofen) 800 Mg Tab, 800 MG PO TID PRN for 15 Days, #40 TAB Prov:CANDY REYES DO 12/01/21 Hydrocodone-Acetaminophen (Hydrocodone Bitartrate/AC 5-325 mg) 1 Tab Tab, 1 TAB PO Q6HP PRN for 5 Days, #20 TAB Prov:CANDY REYES DO 12/01/21 Cephalexin Monohydrate (Cephalexin) 500 Mg Tab, 1 TAB PO QID, #40 TAB Prov:CANDY REYES DO 12/01/21 Reported Medications Ursodiol (Ursodiol) 300 Mg Cap, 300 MG PO, CAP 08/04/24 Vit W/ Ferrous Fumara ( One Daily) Daily Tab, 1 TAB PO DAILY, #90 TAB 3 Refills 07/10/24 Information Source: Patient Mode of Arrival: Ambulatory Timing: Hours, Days Severity: Moderate Vaginal Discharge: None Vaginal Lesions: None Bleeding Quality: Bright Red Vaginal Mass: None Onset Of Mass/Bleeding: Spontaneous Sexual Activity: Last Consensual [place]: Unknown Control: None History of: Current Associated Signs and Symptoms: Vaginal Bleeding, Cramping Past Medical History PAST MEDICAL HISTORY: Seizures Past Medical History (Other): Patient states she is currently with a unknown gestation Surgical History: Cholecystectomy, Tonsillectomy OBSTETRICS GYNECOLOGY PHYSICIAN History: Ectopic , Spontaneous 14 Para 3 AB many miscarriages and one ectopic LMP 10/23/24 Family History Family History: Family hx of DM Social History Smoker: Non-Smoker Alcohol: Denies ETOH Use Drugs: Denies Drug Use Lives In: Home Constitutional: denies: chills, diaphoresis, fatigue, fever, malaise, sweats, weakness, others EENTM: denies: blurred vision, double vision, ear bleeding, ear discharge, ear drainage, ear pain, ear ringing, eye pain, eye redness, hearing loss, mouth pain, mouth swelling, nasal discharge, nose bleeding, nose congestion, nose pain, photophobia, tearing, throat pain, throat swelling, voice changes, others Respiratory: denies: cough, hemoptysis, orthopnea, SOB at rest, shortness of breath, SOB with excertion, stridor, wheezing, others Cardiovascular: denies: chest pain, dizzy spells, diaphoresis, Dyspnea on exertion, edema, irregular heart beat, left arm pain, lightheadedness, palpit ations, PND, syncope, others Gastrointestinal: denies: abdomen distended, abdominal pain, blood streaked b owels, constipated, diarrhea, dysphagia, difficulty swallowing, hematemesis, melena, nausea, poor appetite, poor fluid intake, rectal bleeding, rectal pain, vomiting, others Genitourinary: reports: abnormal vagina bleeding, pain, ; denies: burning, dyspareunia, dysuria, flank pain, frequency, hematuria, incontinence, vagina discharge, urgency, others Neurological: denies: dizziness, fainting, headache, left sided numbness, left sided weakness, numbness, paresthesia, pre-existing deficit, right sided numbness, right sided weakness, seizure, speech problems, tingling, tremors, weakness, others Musculoskeletal: denies: back pain, gout, joint pain, joint swelling, muscle pain, muscle stiffness, neck pain, others Allergic/Immunocompromised: denies: Difficulty Healing, Frequent Infections, Hives, Itching, others Hematologic/Lymphatic: denies: anemia, blood clots, easy bleeding, easy bruising, swollen glands, others Endocrine: denies: excessive hunger, excessive sweating, excessive thirst, excessive urination, flushing, intolerance to cold, intolerance to heat, unexpl ained weight gain, unexplained weight loss, others Psychiatric: denies: anxiety, bipolar disorder, depression, hopeless, panic disorder, schizophrenia, sleepless, suicidal, others All Other Systems: Reviewed and Negative Physical Exam General Appearance: Mild Distress (Moderate distress due to anxiety related to her bleeding concerns rather than definitive pain. Patient declined any pain medication while at the facility.), Normal HEENT: Normal ENT Inspection, Pharynx Normal, TMs Normal Neck: Full Range of Motion, Non-Tender, Normal, Normal Inspection Respiratory: Chest Non-Tender, Lungs Clear, No Accessory Muscle Use, No Respiratory Distress, Normal Breath Sounds Cardiovascular: No Edema, No JVD, No Murmur, No Gallop, Normal Peripheral Pulses, Regular Rate/Rhythm Breast Exam: Deferred Gastrointestinal: Other (Diffuse nonspecific bilateral lower abdominal/pelvic tenderness to palpation. Difficult to assess due to body habitus. No signs of trauma.) Genitalia: Deferred Pelvic: Deferred Rectal: Deferred Extremities: Normal inspection, Non-tender Neurologic: Alert Cerebellar Function: NOT DONE Reflexes: NOT DONE Skin: Dry, Normal Color, Warm Lymphatic: No Adenopathy Was a procedure done? Was a procedure done?: No Differential Diagnosis (OBSTETRICS GYNECOLOGY PHYSICIAN) Vaginal Bleeding: - Complete, - Incomplete, - Inevitable, - Missed, - Threatened, Menorrhagia, Menometrorrhagia, Menstrual Bleeding, UTI, Other (Vaginal bleeding in 1st trimester) X-Ray, Labs, Meds, VS Vital Signs Date Time Temp Pulse Resp B/P (MAP) Pulse Ox O2 Delivery O2 Flow Rate FiO2 12/15/24 16:09 98.2 74 16 127/80 97 98.2 Lab Test 12/15/24 16:55 Range/Units White Blood Count 8.2 # 4.4-10.8 10^3/uL Red Blood Count 4.68 4.0-5.20 10^6/uL Hemoglobin 14.1 12.2-16.2 g/dL Hematocrit 41.8 36.0-46.0 % Mean Corpuscular Volume 89.4 80.0-100.0 fL Mean Corpuscular Hemoglobin 30.2 28.0-32.0 pg Mean Corpuscular Hemoglobin Concent 33.8 32.0-36.0 g/dL Red Cell Distribution Width 12.9 11.8-14.3 % Platelet Count 370 140-450 10^3/uL Mean Platelet Volume 7.0 6.9-10.8 fL Neutrophils (%) (Auto) 74.9 37.0-80.0 % Lymphocytes (%) (Auto) 18.4 10.0-50.0 % Monocytes (%) (Auto) 5.2 0.0-12.0 % Eosinophils (%) (Auto) 1.1 0.0-7.0 % Basophils (%) (Auto) 0.4 0.0-2.0 % Neutrophils # (Auto) 6.1 1.6-8.6 10 ^3/uL Lymphocytes # (Auto) 1.5 0.4-5.4 10 ^3/uL Monocytes # (Auto) 0.4 0-1.3 10 ^3/uL Eosinophils # (Auto) 0.1 0-0.8 10 ^3/uL Basophils # (Auto) 0 0-0.2 10 ^3/uL Nucleated Red Blood Cells 0.1 % Sodium Level 142 136-145 mmol/L Potassium Level 4.4 3.5-5.1 mmol/L Chloride Level 104 98-107 mmol/L Carbon Dioxide Level 27 20-31 mmol/L Anion Gap 11 5-15 Blood Urea Nitrogen 13 9-23 mg/dL Creatinine 0.78 0.550-1.02 mg/dL Glomerular Filtration Rate Calc 104 >90 mL/min BUN/Creatinine Ratio 16.7 10.0-20.0 Serum Glucose 91 74-106 mg/dL Calcium Level 9.3 8.7-10.4 mg/dL Beta HCG, Quantitative 5955.1 H 1.5-4.2 mIU/mL X-Ray, Labs, Meds, VS Comment All studies performed the ED were evaluated by me personally. Serum studies were unremarkable for any systemic concerns. Beta-hCG today was 5955. Discussed the case with the doctors Eric. She is familiar with the patient and requested the patient return tomorrow to the ED for repeat ultrasound at that time. Dr. Reyes would like to be notified after the ultrasound is completed. This patient was concerned at discharge that she may have an ectopic . Patient states that her symptoms feel like an ectopic . I called Dr. Reyes and advised her of patient concerns. She requested a transvaginal OB ultrasound to assess. Ultrasound results came back showing a adnexal mass lesion that may be authorization representative of ectopic . Dr. Reyes was notified and patient will be admitted for surgical evaluation tomorrow. Time of 1ST Reevaluation: 18:02 Reevaluation 1ST: Unchanged Consultation: PCP, english tutor Patient Education/Counseling: Diagnosis, Treatment, Prognosis Family Education/Counseling: Diagnosis, Treatment, No Family Present Departure 1 Departure Time of Disposition: 18:02 Impression: Primary Impression: Vaginal bleeding before 22 weeks gestation Disposition: ADMITTED INPATIENT Condition: Fair Discharged With: Self Critical Care Note Critical Care Time?: No Stability Stability form required: No I personally scribed for ANA CARSON PAC ([email or web address]) on 12/15/24 at 17:02. Electronically submitted by Fay Haney ([facility]). ANA CARSON PAC Dec 15, 2024 17:02
[2024-12-15 17:28] LABS: Chloride 104 mmol/L (98-107); Potassium 4.4 mmol/L (3.5-5.1); Sodium 142 mmol/L (136-145)
[2024-12-15 17:29] LABS: Anion Gap 11 (5-15); Carbon Dioxide 27 mmol/L (20-31); Hematocrit 41.8 % (36.0-46.0); Hemoglobin 14.1 g/dL (12.2-16.2); Mean Corpuscular Hemoglobin 30.2 pg (28.0-32.0); Mean Corpuscular Volume 89.4 fL (80.0-100.0); Nucleated Red Blood Cells % 0.1 %
[2024-12-15 17:30] LABS: Calcium 9.3 mg/dL (8.7-10.4)
[2024-12-15 17:34] LABS: Glucose 91 mg/dL (74-106)
[2024-12-15 17:35] LABS: BUN/Creatinine Ratio 16.7 (10.0-20.0); Blood Urea Nitrogen 13 mg/dL (9-23)
--- NOTE | 2024-12-15 19:44 | DVH ---
OB ULTRASOUND <14 WEEKS: HISTORY: VAGINAL BLEEDING TECHNIQUE: Multiple real-time grayscale sonographic images of the pelvis with duplex Doppler color f low, spectral and M-mode analysis. COMPARISON: US OB TRANS VAGINAL US on DOS: 12/15/24, US OB ULTRASOUND COMP LESS 14WKS on DOS: 5, US OB TRANS VAGINAL US on DOS: 12/11/24, OB TRANS VAGINAL US on DOS: 11/30/21, OB ULTRASOUND COMP L ESS 14WKS on DOS: 11/30/21 FINDINGS: The uterus measures 8.8 x 4.7 x 6.0 cm Endometrium measures 0.7 cm, within normal limits. Few scattered endometrial cysts noted. The cervix is unremarkable Right ovary measures 3.2 x 2.2 x 2.4 cm with normal Doppler color flow. Left ovary measures 3.9 x 2.2 x 3.1 cm with normal Doppler color flow. No intrauterine gestation. No clear-cut ectopic is seen. Questionable echogenic structure adjacent to are within the left ovary, possibly complex cysts a lower throughout the be certain. Trace free fluid in the pelvis. IMPRESSION: No intrauterine gestation is seen. No clear-cut ectopic . Questionable left adnexal or left ovarian rounded structure making it difficult to exclude an ectopic . Trace pelvic fluid. No fluid in Brown's pouch. If beta HCG is rising this is concerning for a left adnexal ectopic . Gynecology consultation recommended.
[2024-12-15 20:00] LABS: Hematocrit 40.9 % (36.0-46.0); Hemoglobin 14.0 g/dL (12.2-16.2); Mean Corpuscular Hemoglobin 30.2 pg (28.0-32.0); Mean Corpuscular Volume 88.6 fL (80.0-100.0); Nucleated Red Blood Cells % 0.0 %
[2024-12-15 20:14] LABS: INR 0.97 (0.9-1.15); Prothrombin Time 10.3 sec (9.3-11.8)
[2024-12-15 20:24] LABS: Alanine Aminotransferase 24 U/L (7-40); Albumin 4.6 g/dL (3.2-4.8); Alkaline Phosphatase 57 U/L (46-116); Anion Gap 10 (5-15); BUN/Creatinine Ratio 11.3 (10.0-20.0); Bilirubin, Total 0.6 mg/dL (0.2-1.0); Calcium 9.2 mg/dL (8.7-10.4); Carbon Dioxide 26 mmol/L (20-31); Chloride 104 mmol/L (98-107); Glucose 85 mg/dL (74-106); Lipase 34 U/L (12-53); Potassium 3.8 mmol/L (3.5-5.1); Sodium 140 mmol/L (136-145); Total Protein 7.4 g/dL (5.7-8.2)
[2024-12-15 20:27] LABS: Blood Urea Nitrogen 8 mg/dL (9-23)
--- NOTE | 2024-12-15 22:31 | DVHHPRES ---
History of Present Illness Resident Creating Document: JAS COY History of Present Illness Ms. Tang is a 29-year-old female with prior medical history of epilepsy, ectopic in 2022, and multiple miscarriages, presents today with chief complaint of vaginal spotting and abdominal cramping. The patient states she has been spotting since November 23 and was unaware she was until she presented to the ED on 12/11/2024 after bleeding did not cease after a course of Provera prescribed by her graphic pre press trades worker, Dr. Reyes. She states today she had onse t of generalized cramping and pressure like pain, which radiates towards her rectum, 10/10 intensity, associated with nausea and vomiting, worsened by sitting, and was not relieving factors, which she reports were similar to the symptoms she felt with her previous ectopic , prompting her to seek medical attention in the ED. On evaluation in the ED, the patient was in mod erate distress, with stable vital signs. Initial labs show CBC and CMP within normal range. Beta hCG 5955.1. UA without significant findings. UDS positive for fentanyl. Obstetric ultrasound shows no intrauterine gestation seen, questionable left maxillary left ovarian rounded structure making it difficult to exclude . The patient was admitted for further work up and management. Prior medical history: Epilepsy, [id number] Surgical history: Cholecystectomy, tonsillectomy, and exploratory laparotomy Allergies: Denies Social: Denies drug, alcohol, and tobacco use. Lives with children and states she feels safe. Review of Systems Review of Systems Constitutional: Denies weight loss, fever and chills. HEENT: Denies changes in vision and hearing. Respiratory: Denies shortness of breath and cough Cardiovascular: Denies chest discomfort or palpitations GI: Refers abdominal pressure and cramping, nausea, vomiting, Denies abdominal distention, diarrhea : Denies dysuria and urinary frequency. 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 Neurological: denies dizziness headache vision or hearing problems Allergies: Coded Allergies: Sumatriptan (Verified Adverse Reaction, Mild, 08/05/24) Throat felt tight but no problem breathing Exam Vital Signs Vital Signs Date Time Temp Pulse Resp B/P (MAP) Pulse Ox O2 Delivery O2 Flow Rate FiO2 12/15/24 20:03 98.4 78 18 108/70 (83) 98 98.4 Exam General: The patient alert and oriented in person place and time. Patient following commands HEENT: Normocephalic, atraumatic, normal reactive pupils, EOM intact, pink conjunctiva, pink dry mucous membrane Respiratory/pulmonary: Bilateral chest expansion, no pain on palpation of chest wall, clear lungs bilaterally, vesicular murmurs present in almost all lung richard, no associated crackles or wheezes. Cardiovascular: Normal RRR, normal S1 and S2, no murmurs Abdomen: Obese, Abdomen nondistended, normal bowel sounds, soft, pain on palpat ion in lower abdominal quadrants, no palpable masses. Extremities: No deformities, there is no peripheral edema present at the lower extremities, normal pulses Skin: No rashes or pruritus, there is no sacral edema present at this time. Neurological: Intact cranial nerves with no focal neurologic deficits Labs/Xrays Labs Test 12/15/24 19:31 12/15/24 16:55 Range/Units White Blood Count 10.8 # 4.4-10.8 10^3/uL Red Blood Count 4.62 4.0-5.20 10^6/uL Hemoglobin 14.0 12.2-16.2 g/dL Hematocrit 40.9 36.0-46.0 % Mean Corpuscular Volume 88.6 80.0-100.0 fL Mean Corpuscular Hemoglobin 30.2 28.0-32.0 pg Mean Corpuscular Hemoglobin Concent 34.1 32.0-36.0 g/dL Red Cell Distribution Width 13.1 11.8-14.3 % Platelet Count 373 140-450 10^3/uL Mean Platelet Volume 7.0 6.9-10.8 fL Neutrophils (%) (Auto) 75.2 37.0-80.0 % Lymphocytes (%) (Auto) 20.1 10.0-50.0 % Monocytes (%) (Auto) 3.8 0.0-12.0 % Eosinophils (%) (Auto) 0.7 0.0-7.0 % Basophils (%) (Auto) 0.2 0.0-2.0 % Neutrophils # (Auto) 8.1 1.6-8.6 10 ^3/uL Lymphocytes # (Auto) 2.2 0.4-5.4 10 ^3/uL Monocytes # (Auto) 0.4 0-1.3 10 ^3/uL Eosinophils # (Auto) 0.1 0-0.8 10 ^3/uL Basophils # (Auto) 0 0-0.2 10 ^3/uL Nucleated Red Blood Cells 0.0 % Prothrombin Time 10.3 9.3-11.8 sec Prothrombin Time INR 0.97 0.9-1.15 Activated Partial Thromboplast Time 25.4 24.5-34.5 SEC Sodium Level 140 136-145 mmol/L Potassium Level 3.8 3.5-5.1 mmol/L Chloride Level 104 98-107 mmol/L Carbon Dioxide Level 26 20-31 mmol/L Anion Gap 10 5-15 Blood Urea Nitrogen 8 L 9-23 mg/dL Creatinine 0.71 0.550-1.02 mg/dL Glomerular Filtration Rate Calc 117 >90 mL/min BUN/Creatinine Ratio 11.3 10.0-20.0 Serum Glucose 85 74-106 mg/dL Calcium Level 9.2 8.7-10.4 mg/dL Total Bilirubin 0.6 0.2-1.0 mg/dL Aspartate Amino Transferase (AST) 20 13-40 U/L Alanine Aminotransferase (ALT) 24 7-40 U/L Alkaline Phosphatase 57 46-116 U/L Total Protein 7.4 5.7-8.2 g/dL Albumin 4.6 3.2-4.8 g/dL Lipase 34 12-53 U/L Beta HCG, Quantitative 5955.1 H 1.5-4.2 mIU/mL SEPSIS Sepsis Screen Date sepsis recognized/suspect: Dec 15, 2024 Time Sepsis recognized/suspect: 1609 Recent Procedure: No On Antibiotic Therapy: No Respiratory Rate >20: No Heart Rate >90: No Temp<36 C (96.8 F) or >38.3 C: No SBP <90 or MAP <65 mmHG: No New Acute Mental Status Change: No Is the patient on CPAP, BIPAP,: No Physician Orders Ob Trans Vaginal Us (12/15/24 18:12) Ob Ultrasound Comp Less 14wks (12/15/24 ) Npo (Nothing By Mouth) Diet (12/16/24 Breakfast) Obtain Consent For: (12/15/24 21:06) Obtain Consent For Anesthesia (12/15/24 21:06) Magnesium (12/15/24 22:18) Phosphorus (12/15/24 22:18) Thyroid Stimulating Hormone (12/15/24 22:18) Vitamin D, 25-Hydroxy (12/15/24 22:18) Vitamin B12 (12/15/24 22:18) Hemoglobin A1c (12/15/24 22:18) * Saddle Cutter Consultation (12/15/24 22:18) NS (12/15/24 22:30) Communication Order (12/15/24:18) Levetiracetam Tablet (Keppra Tablet) (12/16/24 10:00) Pantoprazole (Protonix) (12/16/24 10:00) Sequential Compression Device (12/15/24 22:18) Admit (12/15/24 22:18) Allergies (12/15/24:) Code Status (12/15/24:18) Condition: Stable (12/15/24 22:18) Stat Ekg For Chest Pain (12/15/24 22:18) Notify Md Of Changes From Base (12/15/24 22:18) Emergency Dysrhythmia Protocol (12/15/24 22:18) Rhythm Strips Once Every Shift (12/15/24 22:18) Ketorolac Injection (Toradol Injection) (12/15/24 22:30) Vital Signs Date Time Temp Pulse Resp B/P (MAP) Pulse Ox O2 Delivery O2 Flow Rate FiO2 12/15/24 20:03 98.4 78 18 108/70 (83) 98 98.4 12/15/24 16:09 98.2 74 16 127/80 97 98.2 Laboratory Tests Test 12/15/24 16:55 12/15/24 19:31 White Blood Count 8.2 10^3/uL (4.4-10.8) # 10.8 10^3/uL (4.4-10.8) # Assessment/Plan Assessment/Plan Assessment and Plan: Left Ectopic - B-HC.4 (12/11/2024) -> 5955.1 (12/16/2024)) - Obstetric US: No intrauterine gestation seen, questionable left adnexal or left ovarian rounded structure making it difficult to exclude an ectopic , trace pelvic fluid. - OBGYN has been consulted - Toradol 15 mg IV q 6 hours PRN - Zofran 4 mg q 4 hours PRN - NS maintenance fluids 75 cc/hr - Patient is NPO pending OBGYN evaluation Epilepsy - Continue Keppra 600 mg p.o. b.i.d. Vitamin D deficiency - Vitamin D 92841 U q7D once NPO lifted Substance use - I have counseled the patient on the importance of complete illicit drug use cessation for over 12 minutes. Obesity, BMI 34.1 kg/m2 - I have counseled the patient on healthy lifestyle modifications. Diet: NPO DVT prophylaxis: SCDs GI prophylaxis: Protonix 40 mg IV daily Case discussed with Dr. Verma Goals of care discussed with the patient for over 25 minutes. FULL CODE. Plan discussed with: Patient, Other My Orders Orders - JAS COY RESIDENT Procedure Category Date Status Time Magnesium LAB 12/15/24 Verified 22:18 Phosphorus LAB 12/15/24 Verified 22:18 Thyroid Stimulating LAB 12/15/24 Verified Hormone 22:18 Vitamin D, 25-Hydroxy LAB 12/15/24 Verified 22:18 Vitamin B12 LAB 12/15/24 Verified 22:18 Hemoglobin A1c LAB 12/15/24 Verified 22:18 * Saddle Cutter Consultation CONS 12/15/24 Verified 22:18 NS PHA 12/15/24 Verified 22:30 Communication Order ORDERS 12/15/24 Verified 22:18 Levetiracetam Tablet PHA 12/16/24 Verified (Keppra Tablet) 10:00 Pantoprazole PHA 12/16/24 Verified (Protonix) 10:00 Sequential JOÃO 12/15/24 Verified Compression Device 22:18 Admit ADMIT 12/15/24 Verified 22:18 Allergies JOÃO 12/15/24 Verified 22:18 Code Status CODE 12/15/24 Verified 22:18 Condition: Stable JOÃO 12/15/24 Verified 22:18 Stat Ekg For Chest JOÃO 12/15/24 Verified Pain 22:18 Notify Md Of Changes JOÃO 12/15/24 Verified From Base 22:18 Emergency Dysrhythmia JOÃO 12/15/24 Verified Protocol 22:18 Rhythm Strips Once JOÃO 12/15/24 Verified Every Shift 22:18 Ketorolac Injection PHA 12/15/24 Verified (Toradol Injection) 22:30 Date of Service: Dec 15, 2024 Billing Provider: JOHN VERAM MD Common Visit Codes: 22898-GVZQWNR INP/OBS CARE (HIGH) Secondary Visit Codes: 58202-[id number] CARE PLAN 30 MINUTES JAS COY RESIDENT Dec 15, 2024 22:31 GARO RICKETTS RESIDENT Dec 16, 2024 08:18
[2024-12-15 23:20] LABS: Magnesium 1.9 mg/dL (1.6-2.6)
[2024-12-15] MEDS: KETOROLAC TROMETH 30 MG/ML 1ML VIAL IV PRN (23:22)
[2024-12-15] MEDS: ONDANSETRON HCL 4 MG/2 ML VIAL IV PRN (23:22)
[2024-12-15] MEDS: levETIRAcetam 500 MG TAB PO ONE (23:22)
[2024-12-16] VITALS (12 sets, daily range): BP systolic 92–116; BP diastolic 52–75; PULSE 75–92; RESP 14–20; TEMP 97.7–98.4; O2SAT 94–100
[2024-12-16 04:35] LABS: Urine Protein, UAD Negative (Negative)
[2024-12-16 04:36] LABS: Amphetamine Screen, Urine Neg (NEGATIVE); Barbiturate Scree,Urine Neg (NEGATIVE); Benzodiazephine Screen, Urine Neg (NEGATIVE)
[2024-12-16 04:37] LABS: Cocaine Screen, Urine Neg (NEGATIVE)
[2024-12-16 04:42] LABS: Cannabinoid Screen, Urine Neg (NEGATIVE); Opiate Scree,Urine Neg (NEGATIVE); Phencyclidine Screen, Urine Neg (NEGATIVE)
[2024-12-16 04:45] LABS: Hematocrit 38.5 % (36.0-46.0); Hemoglobin 13.2 g/dL (12.2-16.2); Mean Corpuscular Hemoglobin 30.4 pg (28.0-32.0); Mean Corpuscular Volume 88.3 fL (80.0-100.0); Nucleated Red Blood Cells % 0.0 %
[2024-12-16 04:50] LABS: Chloride 105 mmol/L (98-107); Potassium 3.8 mmol/L (3.5-5.1); Sodium 142 mmol/L (136-145)
[2024-12-16 04:51] LABS: Anion Gap 10 (5-15); Carbon Dioxide 27 mmol/L (20-31)
[2024-12-16 04:52] LABS: Calcium 8.7 mg/dL (8.7-10.4)
[2024-12-16 04:56] LABS: BUN/Creatinine Ratio 16.7 (10.0-20.0); Blood Urea Nitrogen 12 mg/dL (9-23); Glucose 90 mg/dL (74-106)
[2024-12-16] MEDS: PANTOPRAZOLE 40 MG/10 ML VIAL INJ IV SCH (09:46)
--- NOTE | 2024-12-16 09:49 | ECG ---
[facility] Test Date: 2024-12-16 Test Time: 03:06:08 Pat Name: ADDIS ESTEVEZ Department: Room: [facility]5T B Gender: F Expert Witness: [id number] : 1995 Requested By: AJS COY Order Number: [id number] Reading MD: Ridge Freeman Measurements Intervals [place] Rate: 83 P: 24 FL: 154 QRS: 28 QRSD: 102 T: 34 QT: 395 QTc: 465 Interpretive Statements Sinus rhythm Low voltage, precordial leads Electronically Signed On 12-16-2024 17:36:53 PDT by Ridge Freeman Please click the below link to view image of tracing.
[2024-12-16] MEDS ORDERED: levETIRAcetam 500 MG TAB PO SCH (10:00)
[2024-12-16] MEDS: levETIRAcetam 500 mg/100ml 100 ML IV ONE (12:30)
[2024-12-16] MEDS ORDERED: HYDROMORPHONE HCL 1 MG/ML INJ IV PRN (12:45)
--- NOTE | 2024-12-16 13:03 | DVHHP2 ---
History Allergies: Coded Allergies: Sumatriptan (Verified Adverse Reaction, Mild, 08/05/24) Throat felt tight but no problem breathing Chief Complaint: mild vaginal spotting no sig abd pelvic pain Present Illness(Onset/Duration Quant HCG greater 5000 no IUP complex cystic structure in left adnexa by US ... Hx ectopic ; Patient unsure which side but did require ? some type of surgery ... she has no idea of the surgery she had associated with first ectopic. She understands risks , benefits , and alternative to dx LSC and possibility of removing left or right tube and or ovary. She desires one more child. LMP ? unsure Nov 23 ; Mom DM Family History: Father (Living) - Age:, Mother(Living)- Age: Past Surgical History: Other (Dx LSC 1st ectopic) Medications Kepra Exam Exam General Appearance: Normal HEENT: None Neck: None Respiratory: No Accessory Muscle Use Cardiovascular: Normal Peripheral Pulses Breast Exam: None Gastrointestinal: Diffuse, Non Tender Pelvic: No Masses, None Rectal: None Extremities: Normal capillary refill Neurologic: Alert Reflexes: Normal Lymphatic: NOT DONE Other Assessment : Ectopic Plan : Dx LSC removal of ectopic possible unilateral left or right salpingectomy oophorectomy LIONEL TROTTER DO Dec 16, 2024 13:03
[2024-12-16] MEDS ORDERED: fentaNYL CITRATE 100 MCG/2 ML VL ONE ×2 (13:10→13:54)
[2024-12-16] MEDS ORDERED: MIDAZOLAM HCL 2MG/2ML 2ml VIAL (1mg/ml) ONE (13:10)
[2024-12-16] MEDS: BUPIVACAINE 0.25% INJ 50ML VIAL ONE (13:50)
[2024-12-16] MEDS ORDERED: ONDANSETRON HCL 4 MG/2 ML VIAL IV PRN (14:15)
[2024-12-16] MEDS ORDERED: HYDROmorphone HCL 2 MG/ML VL/or syr IV PRN ×3 (14:15)
[2024-12-16] MEDS: ceFAZolin 2 GM/D5W50ml 50 ML IV ONE (14:47)
--- NOTE | 2024-12-16 16:06 | DVHPNRES ---
Progress Note Date Seen: Dec 16, 2024 Resident Creating Document: RAUL COLON Medical Necessity Reason Pt with a Central, PICC or Fol: No (RN) Subjective Review of Systems Patient is a 29-year-old female with past medical history of epilepsy, ectopic in 2022, and multiple miscarriages, presented to [facility] ED with complaint of vaginal spotting and abdominal cramping. The patient states she has been spotting since November 23 and was unaware she was until she presented to the ED on 12/11/2024 after bleeding did not cease after a course of Provera prescribed by her genetic engineer, Dr. Reyes. She states today she had onset of generalized cramping and pressure like pain, which radiates towards her rectum, 10/10 intensity, associated with nausea and vomiting, worsened by sitting, and was not relieving factors, which she reports were similar to the symptoms she felt with her previous ectopic , prompting her to seek medical attention in the ED. On evaluation in the ED, the patient was in moderate distress, with stable vital signs. Initial labs show CBC and CMP within normal range. Beta hCG 5955.1. UA without significant findings. UDS positive for fentanyl. Obstetric ultrasound shows no intrauterine gestation seen, questionable left maxillary left ovarian rounded structure making it difficult to exclude . The patient is diagnosed with an ectopic . The planned management includes diagnostic laparoscopy with possible removal of the ectopic . Surgical options may include unilateral left or right salpingectomy and/or oophorectomy depending on intraoperative findings. Prior medical history: Epilepsy, [id number] Surgical history: Cholecystectomy, tonsillectomy, and exploratory laparotomy Allergies: Denies Social: Denies drug, alcohol, and tobacco use. Lives with children and states she feels safe. Allergies: Sumatriptan Patient seen and examined at bedside. Patient is alert and oriented to time, place person and responding to all questions. Eyes: No Pain, No Vision change, No Conjunctivae inflammation, No Eyelid inflammation, No Other, No Redness ENT: No Ear pain, No Ear discharge, No Nose pain, No Nose discharge, No Nose congestion, No Mouth pain, No Mouth swelling, No Throat pain, No Throat swelling, No Other Cardiovascular: No Chest Pain, No Palpitations, No Orthopnea, No Paroxysmal No Dyspnea, No Edema, No Lt Headedness, No Other Respiratory: No Cough, No Dry, No Shortness of breath, No SOB with exertion, No Wheezing, No Hemoptysis, No Pleuritic Pain, No Sputum, No Other Gastrointestinal: Refers abdominal pressure and cramping, nausea, vomiting, Denies abdominal distention, diarrhea Genitourinary: No Dysuria, No Frequency, No Incontinence, No Hematuria, No Retention, No Other Musculoskeletal: No other, No neck pain, No shoulder pain, No arm pain, No back pain, No hand pain, No leg pain, No foot pain Skin: No Rash, No Lesions, No Jaundice, No Bruising, No Other DRILLING SUPERVISOR: Refers vaginal spotting Objective vital signs Vital Sign Date Time Temp Pulse Resp B/P (MAP) Pulse Ox O2 Delivery O2 Flow Rate FiO2 12/16/24 12:36 98.4 77 15 100/65 (77) 97 98.4 12/16/24 08:00 Room Air* 0 21 Total Intake and Output 12/15/24 12/15/24 12/16/24 15:00 23:00 07:00 Intake Total 0 ml Balance 0 ml medications Current Medications Medications Dose Ordered Sig/Juvenal Route Start Time Stop Time Status Last Admin Dose Admin Pantoprazole Sodium 40 mg DAILY IV 12/16/24 10:00 12/16/24 09:46 40 MG Ketorolac Tromethamine 15 mg Q6HPRN PRN IV 12/15/24 22:30 12/20/24 22:29 12/16/24 10:52 15 MG Ondansetron HCl 4 mg Q4HPRN PRN IV 12/15/24 23:15 12/15/24 23:22 4 MG Ergocalciferol 50,000 unit Q7D PO 12/16/24 08:15 Hydromorphone HCl 0.5 mg Q4HPRN PRN IV 12/16/24 12:45 Levetiracetam 100 ml @ 400 mls/hr BID IV 12/16/24 22:00 Examination General: The patient alert and oriented in person place and time. Patient following commands HEENT: Normocephalic, atraumatic, normal reactive pupils, EOM intact, pink conjunctiva, pink dry mucous membrane Respiratory/pulmonary: Bilateral chest expansion, no pain on palpation of chest wall, clear lungs bilaterally, vesicular murmurs present in almost all lung richard, no associated crackles or wheezes. Cardiovascular: Normal RRR, normal S1 and S2, no murmurs Abdomen: Obese, Abdomen nondistended, normal bowel sounds, soft, pain on palpation in lower abdominal quadrants, no palpable masses. Extremities: No deformities, there is no peripheral edema present at the lower extremities, normal pulses Skin: No rashes or pruritus, there is no sacral edema present at this time. Neurological: Intact cranial nerves with no focal neurologic deficits laboratory and microbiology Laboratory Tests 12/16/24 04:20 Test 12/16/24 04:20 Range/Units Serum Glucose 90 74-106 mg/dL Microbiology Date/Time Source Procedure Growth Status 12/16/24 02:10 Nose MRSA Screen - Final Complete Labs and/or images reviewed: Labs reviewed by me, Image(s) reviewed by me Problem List/Assessment/Plan Problem List/Assessment/Plan Assessment and Plan: Left Ectopic - B-HC.4 (12/11/2024) -> 5955.1 (12/16/2024)) - Obstetric US: No intrauterine gestation seen, questionable left adnexal or left ovarian rounded structure making it difficult to exclude an ectopic , trace pelvic fluid. - OBGYN has been consulted (Dr. Barragan will be performing the surgery today) - Toradol 15 mg IV q 6 hours PRN - Zofran 4 mg q 4 hours PRN - NS maintenance fluids 75 cc/hr - Patient is NPO pending OBGYN evaluation Epilepsy - Continue Keppra 600 mg p.o. b.i.d. Vitamin D deficiency - Vitamin D 57506 U q7D once NPO lifted Substance use - I have counseled the patient on the importance of complete illicit drug use cessation for over 12 minutes. Obesity, BMI 34.1 kg/m2 - I have counseled the patient on healthy lifestyle modifications. Diet: NPO DVT prophylaxis: SCDs GI prophylaxis: Protonix 40 mg IV daily Goals of care: Full code, discussed for >16 minutes on 12/16/24 Plan discussed with patient Plan discussed with Dr. Knight Plan discussed with: Patient, Spouse (RN), Other (RN) Date of Service: Dec 16, 2024 Billing Provider: KARINA KNIGHT MD Common Visit Codes: [id number] INP/OBS CARE(HIGH) RAUL COLON RESIDENT Dec 16, 2024 16:06 KARINA KNIGHT MD Dec 19, 2024 07:23
--- NOTE | 2024-12-16 16:10 | DVHOP2 ---
Operative Report - 2 Report Details Date: 12/16/24 Preop Diagnosis: Ruptured ectopic Postop Diagnosis: Same left ampullary, ruptured ectopic hemoperitoneum 250 cc Surgeon: Randy Jc Relief Captain: Marcelo mcpherson Anesthesiologist: Kira GOLDEN Anesthesia: General Drains: None Implant: None Consent: The patient was informed of the risks and benefits of the procedure. These include but are not limited to complications of anesthesia, postoperative infection, incomplete relief of symptoms, recurrence of symptoms, damage to blood vessels, nerves and tendons, deep venous thrombosis, pulmonary embolism and possible need for repeat surgery in the future. Complications: None Estimated Blood Loss: 5 cc: Hemoperitoneum found 250 cc Fluids: See anesthesia log Findings: Left ampullary ruptured ectopic which had clotted off after bleeding 250 cc hemoperitoneum. Severe destruction of the left tube and moderate left adnexal adhesions. Indications for Surgery: Pelvic pain ruptured ectopic Name of Procedure Performed Diagnostic laparoscopy left salpingectomy and removal of ectopic evacuation of hemoperitoneum lysis of adhesions Procedure Details Procedure Details: Patient taken the operating room placed in supine position general anesthesia per that discussion then placed in Homero stirrups prepped draped sterile fashion pelvic found her cervix to be closed she sounded 7 cm and a Kroner uterine manipulator was placed. Peritoneum was draped gloves changed gowns changed and attention turned to the abdomen infraumbilical incision was made through old scar with 11 blade towel clamp was used to tent the rectus fascia anteriorly and a Veress needle was placed with a water test flowed easily. Pneumoperitoneum 4 L was performed CO2. We then used a bladeless Visiport 5 mm to transect through the rectus fascia under direct visualization. Initial cursory observations brenda ws 250 cc liquified venous blood in the posterior cul-de-sac and an obvious left ampullary ectopic which had obviously ruptured and with had been bleeding and clotted off. The tube did not appear to be salvageable as it appeared to have had previous PID severe moderate to severe left adnexal adhesions which were taken down with sharp and blunt dissection. We then placed a supra pubic port 5 mm and a left lower quadrant 5 mm port in the subumbilical port was traded out for a 12 trocar under direct visualization. We then placed a locking grasper over the left tube at the proximal portion of the tube adjacent to the uterus effectively tenting it anteriorly and then again sharp and blunt dissection was used to free the left adnexa the right tube appeared normal as well as both ovaries. I then placed a Endo-KISHORE 60 load across the broad ligament effectively transecting the tube and its blood supply with the ectopic within the tube this was fired 1 time clean. We then copiously irrigated had no evidence of hemo stasis the staple margin was hemostatic and the sample was placed in a 10 mm endobag. This was then brought through the 12 mm port and then the Marv Lees was placed within the 12 mm rectus fascia incision and closed with a 0 Ethibond interrupted suture. We irrigated all the trocar incisions pneumoperitoneum was relieved and the skin was closed subcuticular with 2-0 chromic these skin was also closed with a 4-0 Vicryl more superficially and then benzoin Steri-Strips placed. Pressure dressings were placed an abdominal binder. Patient taken recovery room stable condition she will be stable for discharge tonight assuming her pain is well controlled. She will have follow up with Dr. Viera her regular bioinformatics assistant is well familiar with her and actually had prep ared her for me covering this weekend to take over the case and performed the surgery at her request. Specimen: Left fallopian tube with intra uterine ectopic. Condition Good Disposition PACU recovery LIONEL JC DO Dec 16, 2024 16:10
[2024-12-16] MEDS: ERGOCALCIFEROL 50,000 UNIT(1.25MG) CAP PO SCH (18:36)
[2024-12-16] MEDS: levETIRAcetam 500 mg/100ml 100 ML IV SCH (22:49)
[2024-12-17 01:00] VITALS: BP 95/62; PULSE 78; RESP 16; TEMP 98.1; O2SAT 95
[2024-12-17 05:00] VITALS: BP 107/68; PULSE 78; RESP 17; TEMP 97.7; O2SAT 96
[2024-12-17 05:57] LABS: Hematocrit 37.7 % (36.0-46.0); Hemoglobin 12.7 g/dL (12.2-16.2); Mean Corpuscular Hemoglobin 30.4 pg (28.0-32.0); Mean Corpuscular Volume 90.5 fL (80.0-100.0); Nucleated Red Blood Cells % 0.1 %
[2024-12-17 06:32] LABS: Alanine Aminotransferase 26 U/L (7-40); Albumin 4.1 g/dL (3.2-4.8); Alkaline Phosphatase 55 U/L (46-116); Anion Gap 9 (5-15); BUN/Creatinine Ratio 7.8 (10.0-20.0); Calcium 8.8 mg/dL (8.7-10.4); Carbon Dioxide 25 mmol/L (20-31); Potassium 4.2 mmol/L (3.5-5.1); Sodium 142 mmol/L (136-145); Total Protein 6.6 g/dL (5.7-8.2)
[2024-12-17 06:33] LABS: Bilirubin, Total 0.7 mg/dL (0.2-1.0)
[2024-12-17 06:38] LABS: Blood Urea Nitrogen 5 mg/dL (9-23); Chloride 108 mmol/L (98-107); Glucose 114 mg/dL (74-106)
[2024-12-17 08:00] VITALS: PULSE 71; RESP 17; O2SAT 97
[2024-12-17 09:00] VITALS: BP 106/56; PULSE 71; RESP 17; TEMP 98.5; O2SAT 97
--- NOTE | 2024-12-17 11:12 | DVHPN2 ---
Chief Complaints Patient reports: No new complaints, Feels better Nursing reports: No new complaints Objective Vitals Vital Signs Date Time Temp Pulse Resp B/P (MAP) Pulse Ox O2 Delivery O2 Flow Rate FiO2 12/17/24 09:00 98.5 71 17 106/56 (73) 97 98.5 12/16/24 21:40 Room Air* 0 21 Medications Current Medications Medications (Trade) Dose Ordered Sig/Juvenal Route PRN Reason Start Time Stop Time Status Last Admin Hydromorphone HCl (Dilaudid Injection) 0.5 mg Q4HPRN PRN IV SEVERE PAIN (7-10 PAIN SCALE) 12/16/24 12:45 Levetiracetam 100 ml @ 400 mls/hr BID IV 12/16/24 22:00 12/17/24 09:02 General: Normal Head/Eyes: Normal Neck: Normal Lungs: Normal Cardiovascular: Normal Abdominal: Normal (Wounds clean dry and intact no sign of infection) Studies Laboratory Tests 12/17/24 05:30 Test 12/17/24 05:30 Range/Units Serum Glucose 114 H 74-106 mg/dL Ass/Plan Assessment Postop day 1 stable improved stable for discharge home Plan Stable for discharge with regards to OBGYN. Hospitalist service to discharge home Follow up Dr Reyes and 1-2 weeks for wound check and pathology review. Avoid 12 weeks pelvic rest 6 weeks no douching tampons intercourse Meds [id number] Tylenol or Motrin p.r.LIONEL Young DO Dec 17, 2024 11:12
[2024-12-17] MEDS: SODIUM CHLORIDE 0.9% 500 ML IV ONE (11:43)
[2024-12-17] MEDS ORDERED: AUG875T PO (12:26)
[2024-12-17 12:50] VITALS: TEMP 36.9
[2024-12-17 13:00] VITALS: BP 95/67; PULSE 81; RESP 15; TEMP 98.7; O2SAT 100
--- NOTE | 2024-12-17 14:26 | DVHDSRES ---
Discharge Summary Date of Admission Resident Creating Document: PHILOMENA BONILLA Dec 15, 2024 at 22:18 Date of Discharge: Dec 17, 2024 Labs/Diagnostic Data: Laboratory Results Test 12/17/24 05:30 12/16/24 08:52 12/16/24 08:12 12/16/24 04:20 White Blood Count 10.7 10^3/uL (4.4-10.8) Red Blood Count 4.16 10^6/uL (4.0-5.20) Hemoglobin 12.7 g/dL (12.2-16.2) Hematocrit 37.7 % (36.0-46.0) Mean Corpuscular Volume 90.5 fL (80.0-100.0) Mean Corpuscular Hemoglobin 30.4 pg (28.0-32.0) Mean Corpuscular Hemoglobin Concent 33.6 g/dL (32.0-36.0) Red Cell Distribution Width 12.6 % (11.8-14.3) Platelet Count 359 10^3/uL (140-450) Mean Platelet Volume 6.9 fL (6.9-10.8) Neutrophils (%) (Auto) 87.5 % (37.0-80.0) Lymphocytes (%) (Auto) 9.7 % (10.0-50.0) Monocytes (%) (Auto) 2.8 % (0.0-12.0) Eosinophils (%) (Auto) 0.0 % (0.0-7.0) Basophils (%) (Auto) 0.0 % (0.0-2.0) Neutrophils # (Auto) 9.3 10 ^3/uL (1.6-8.6) Lymphocytes # (Auto) 1.0 10 ^3/uL (0.4-5.4) Monocytes # (Auto) 0.3 10 ^3/uL (0-1.3) Eosinophils # (Auto) 0 10 ^3/uL (0-0.8) Basophils # (Auto) 0 10 ^3/uL (0-0.2) Nucleated Red Blood Cells 0.1 % Sodium Level 142 mmol/L (136-145) Potassium Level 4.2 mmol/L (3.5-5.1) Chloride Level 108 mmol/L (98-107) Carbon Dioxide Level 25 mmol/L (20-31) Anion Gap 9 (5-15) Blood Urea Nitrogen 5 mg/dL (9-23) Creatinine 0.64 mg/dL (0.550-1.02) Glomerular Filtration Rate Calc 121 mL/min (>90) BUN/Creatinine Ratio 7.8 (10.0-20.0) Serum Glucose 114 mg/dL (74-106) Calcium Level 8.8 mg/dL (8.7-10.4) Total Bilirubin 0.7 mg/dL (0.2-1.0) Aspartate Amino Transferase (AST) 24 U/L (13-40) Alanine Aminotransferase (ALT) 26 U/L (7-40) Alkaline Phosphatase 55 U/L (46-116) Total Protein 6.6 g/dL (5.7-8.2) Albumin 4.1 g/dL (3.2-4.8) Beta HCG, Quantitative 2319.2 mIU/mL (1.5-4.2) Treponema pallidum Antibody Non-reactive (Negative) HIV (1&2) Antibody Negative (Negative) Test 12/16/24 02:10 12/15/24 19:31 Urine Color Yellow (Yellow) Urine Clarity Clear (Clear) Urine pH 5.5 (5.0-9.0) Urine Specific [place] 1.027 (1.001-1.035) Urine Protein Negative (Negative) Urine Ketones 1+ (Negative) Urine Blood 2+ /uL (Negative) Urine Nitrite Negative (Negative) Urine Bilirubin Negative (Negative) Urine Urobilinogen Normal mg/dL (Negative) Urine Leukocyte Esterase Negative /uL (Negative) Urine RBC <1 /hpf (0 - 4) Urine Microscopic WBC < 1 /HPF (0-5) Urine Squamous Epithelial Cells Few /hpf (<5) Urine Bacteria None seen /hpf (None Seen) Urine Mucus Few (None Seen) Urine Glucose Normal mg/dL (Normal) Urine Opiates Screen Neg (NEGATIVE) Urine Fentanyl Screen Pos (NEGATIVE) Urine Barbiturates Screen Neg (NEGATIVE) Urine Phencyclidine Screen Neg (NEGATIVE) Urine Amphetamines Screen Neg (NEGATIVE) Urine Benzodiazepines Screen Neg (NEGATIVE) Urine Cocaine Screen Neg (NEGATIVE) Urine Cannabinoids Screen Neg (NEGATIVE) Prothrombin Time 10.3 sec (9.3-11.8) Prothrombin Time INR 0.97 (0.9-1.15) Activated Partial Thromboplast Time 25.4 SEC (24.5-34.5) Hemoglobin A1c 5.1 % A1C (<5.7) Phosphorus Level 3.6 mg/dL (2.4-5.1) Magnesium Level 1.9 mg/dL (1.6-2.6) Lipase 34 U/L (12-53) Vitamin B12 Level 273 pg/mL (211-911) Vitamin D 25-Hydroxy 13.7 ng/mL (30.0-100) Thyroid Stimulating Hormone (TSH) 0.92 uIU/mL (0.55-4.78) Other Laboratory Tests 12/17/24 05:30 Brief Hx & Hospital Course: Patient is a 29-year-old female with past medical history of epilepsy, ectopic in 2022, and multiple miscarriages, presented to [facility] ED with complaint of vaginal spotting and abdominal cramping. The patient states she has been spotting since November 23 and was unaware she was until she presented to the ED on 12/11/2024 after bleeding did not cease after a course of Provera prescribed by her paring machine operator, Dr. Reyes. She states today she had onset of generalized cramping and pressure like pain, which radiates towards her rectum, 10/10 intensity, associated with nausea and vomiting, worsened by sitting, and was not relieving factors, which she reports were similar to the symptoms she felt with her previous ectopic , prompting her to seek medical attention in the ED. On evaluation in the ED, the patient was in moderate distress, with stable vital signs. Initial labs show CBC and CMP within normal range. Beta hCG 5955.1. UA without significant findings. UDS positive for fentanyl. Prior medical history: Epilepsy, [id number] Surgical history: Cholecystectomy, tonsillectomy, and exploratory laparotomy Allergies: Denies Social: Denies drug, alcohol, and tobacco use. Lives with children and states she feels safe. Allergies: Sumatriptan On further evaluation, obstetric ultrasound shows no intrauterine gestation seen, questionable left maxillary left ovarian rounded structure making it difficult to exclude ectopic . The patient is diagnosed with an ectopic given her elevated beta-hCG level. chemical treatment operator consultation was done, the patient underwent laparoscopic left salpingectomy and removal of ectopic evacuation of hemoperitoneum, lysis of adhesions. The of discharge, laparoscopic wounds were clean, dry no signs of infection and patient was tolerating diet well. The patient was discharged with [facility], [place], and was advised to continue her appropriate home medications including vitamins. The patient was advised to avoid being next 3 months, pelvic rest for 6 weeks including no intercourse, no tampons no douching. Patient verbalized understanding of the discharge plan. The patient was advised to follow up with PCP and warehouse logistics manager in 1-2 weeks. Case discussed with Pt is lying on bed General Appearance: Alert, Oriented X3, Cooperative, Mild distress HEENT: Atraumatic, Mucous membranes moist/pink Respiratory: Clear to auscultation, Normal air movement, No added sounds Cardiovascular: Regular rate, Normal S1, Normal S2, No murmurs Abdominal/ : Active bowel sounds, Soft, no distention, no tenderness Extremities: No edema, Normal pulses, No tenderness/swelling Skin: Laparoscopic scars over abdomen. No signs of infection. Neuro: Normal speech, sensorimotor deficits none Psych/Mental Status: Mental status NL, Mood NL Nurse was there as dyehouse worker during examination Operations or Procedures PATIENT: ADDIS ESTEVEZ ACCT: [id number] UNIT: [id number] : 1995 LOC: ER ROOM / BED: / AGE / SEX: 29 / F ADM STATUS: REG ER SERVICE 0000 ORDERING PHYSICIAN: ANA CARSON PAC PROCEDURE(s): OB4US - OB ULTRASOUND COMP LESS 14WKS REASON: VAGINAL BLEEDING ORDER NUMBER(s): [id number], ACCESSION NUMBER(s): [id number] OB ULTRASOUND <14 WEEKS: HISTORY: VAGINAL BLEEDING TECHNIQUE: Multiple real-time grayscale sonographic images of the pelvis with duplex Doppler color flow, spectral and M-mode analysis. COMPARISON: US OB TRANS VAGINAL US on DOS: 12/15/24, US OB ULTRASOUND COMP LESS 14WKS on DOS: 12/11/24, US OB TRANS VAGINAL US on DOS: 12/11/24, OB TRANS VAGINAL US on DOS: 11/30/21, OB ULTRASOUND COMP LESS 14WKS on DOS: 11/30/21 FINDINGS: The uterus measures 8.8 x 4.7 x 6.0 cm Endometrium measures 0.7 cm, within normal limits. Few scattered endometrial cysts noted. The cervix is unremarkable Right ovary measures 3.2 x 2.2 x 2.4 cm with normal Doppler color flow. Left ovary measures 3.9 x 2.2 x 3.1 cm with normal Doppler color flow. No intrauterine gestation. No clear-cut ectopic is seen. Questionable echogenic structure adjacent to are within the left ovary, possibly complex cysts a lower throughout the be certain. Trace free fluid in the pelvis. IMPRESSION: No intrauterine gestation is seen. No clear-cut ectopic . Questionable left adnexal or left ovarian rounded structure making it difficult to exclude an ectopic . Trace pelvic fluid. No fluid in Brown's pouch. If beta HCG is rising this is concerning for a left adnexal ectopic . Gynecology consultation recommended. Condition at Discharge: Stable Final Diagnosis/Problems List Left ampullary ruptured ectopic with hemoperitoneum s/p Diagnostic laparoscopy left salpingectomy and removal of ectopic evacuation of hemoperitoneum lysis of adhesions Obesity Epilepsy Substance use Vitamin-D deficiency Discharge Disposition: Home Discharge Instruct/Medications Diet: Regular Activity: See Comment Activity comment: avoid 12 pelvic rests including 6 weeks no intercourse, no douching, no tampons Follow Up/Referral: Follow with OBGYN Dr. Reyes in 1-2 weeks Follow up with the PCP in one week Follow up in the d/c clinic in one week Medications: augmentin 875mg twice daily for 4 days ibuprofen/acetaminophen as needed for pain Scheduled Amoxicillin & Pot Clavulanate (Augmentin Tablet), 875 MG PO BID Nitrofurantoin Monohydrate Mac (Macrobid), 100 MG PO BID Vit W/ Ferrous Fumara ( One Daily), 1 TAB PO DAILY, (Reported) Scheduled PRN Hydrocodone-Acetaminophen (Hydrocodone Bitartrate/AC 5-325 mg), 1 TAB PO Q6HP PRN Ibuprofen (Ibuprofen), 800 MG PO TID PRN Ondansetron (Zofran), 4 MG PO Q4HPRN PRN Ondansetron Odt 4MG Tab (Zofran Po), 4 MG PO Q6HP PRN Tramadol Hcl (Tramadol Hcl), 50 MG PO Q6HP PRN Miscellaneous Medications Ursodiol (Ursodiol), 300 MG PO, (Reported) Discontinued Medications Cephalexin Monohydrate (Cephalexin), 1 TAB PO QID Ibuprofen (Ibuprofen), 1 TAB PO TID Discharge Statement: "Patient was advised to return to the ER or call 911 if any headaches, dizziness, shortness of breath, chest pain, abdominal pain, bleeding, fevers, or worsening of medical condition. Patient was counseled about treatment plan, medications, possible side effects, patientverbalized understanding. All questions were answered to the best of my ability. This discharge took greater then 30 minutes in planning, reviewing documentation, counseling the patient, and discussing with other team members." ASSESSMENT ASSESSMENT Assessment Left ampullary ruptured ectopic with hemoperitoneum s/p Diagnostic laparoscopy left salpingectomy and removal of ectopic evacuation of hemoperitoneum lysis of adhesions Date of Service: Dec 17, 2024 Billing Provider: KARINA KNIGHT MD Common Visit Codes: [id number]/OBS DISCH DAY >30min PHILOMENA BONILLA Dec 17, 2024 14:26 KARINA KNIGHT MD Dec 19, 2024 07:23
[2024-12-18 11:11] LABS: Hepatitis B Surface Antigen Negative (Negative)
[2024-12-18 11:26] LABS: Hepatitis C Antibody Negative (Negative)
[2024-12-19 08:07] LABS: Chlamydia Trachomatis, NAA Negative (Negative); Neisseria gonorrhoeae, NAA Negative (Negative)
[2024-12-19 10:07] LABS: Anti-Centromere B Antibody <0.2 AI (0.0-0.9); Anti-Jo-1 Antibody <0.2 AI (0.0-0.9); Anti-dsDNA Antibody <1 IU/mL (0-9); Antichromatin Antibody <0.2 AI (0.0-0.9); Antiscleroderma-70 Antibody <0.2 AI (0.0-0.9); Sjogren's Anti-SS-A Antibody <0.2 AI (0.0-0.9); Sjogren's Anti-SS-B Antibody <0.2 AI (0.0-0.9)
[2024-12-20 18:07] LABS: PTT-LA 31.3 sec (0.0-43.5)
[2024-12-20 19:06] LABS: Anticardiolipin IgG Antibody <9 GPL U/mL (0-14)
== END 2024-12-17 13:50 | disposition home or self-care (01) | DRG 547 ==
LOC: EDBD 16:08 → ER 16:08 → OVERFLOW 22:18 → TELE-WESTW 12-16 01:09
PROVIDERS: ATTEND Obstetrics & Gynecology
PROC: 0UB64ZZ Excision of Left Fallopian Tube, Percutaneous Endoscopic Approach (ICD-10-PCS; 2024-12-16)
PROC: 10T24ZZ Resection of Products of Conception, Ectopic, Percutaneous Endoscopic Approach (ICD-10-PCS; principal; 2024-12-16 13:05)
DX: O00.102 Left tubal pregnancy without intrauterine pregnancy (principal); K66.1 Hemoperitoneum; E55.9 Vitamin D deficiency, unspecified; G40.909 Epilepsy, unspecified, not intractable, without status epilepticus; E66.9 Obesity, unspecified
CPT/HCPCS: 36415; 76801; 76817; 80048; 80053; 80074; 80307; 81001; 82232; 82306; 82607; 83036; 83516; 83690; 83735; 84100; 84443; 84702; 85025; 85610; 85613; 85670; 85705; 85730; 85732; 86225; 86235; 86703; 86780; 86850; 86900; 86901; 87081; 93005; 96360; G0378; J1885; J2250; J2405; J2470; J3490